=== PATIENT | female | born 1990 | race Caucasian/White ===

== ENCOUNTER → 2018-11-22 17:01 | Outpatient (CLI) | payer OTHER, SELFPAY ==
[2016-04-04 14:04] VITALS: BMI 29.0
[2018-11-22 21:18] LABS: Chlamydia Trachomatis by PCR Negative (Negative); Neisserai gonorrhoeae by PCR Negative (Negative); Probe Check PASS; Sample Adequacy Control PASS; Specimen Processing Control PASS
[2018-11-25 16:27] LABS: HPV Reflexed? NOT INDICATED
== END ==
PROVIDERS: Visit Provider Obstetrics & Gynecology
DX: Z12.4 Encounter for screening for malignant neoplasm of cervix (principal); Z11.3 Encounter for screening for infections with a predominantly sexual mode of transmission; Z32.01 Encounter for pregnancy test, result positive
CPT/HCPCS: 87491; 87591; 88175; G0145

== ENCOUNTER → 2018-12-06 16:29 | Outpatient (CLI) | payer OTHER, SELFPAY ==
[2016-04-04 14:04] VITALS: BMI 29.0
[2018-12-06 17:17] LABS: Absolute Lymphocyte Count 2.07 X10^3/ul (0.83-4.51); Absolute Neutrophil Count 8.1 X10^3/uL (2.0-7.7); Basophil# 0.02 X10^3/uL; Basophil% 0.2 % (0-1); Eosinophil# 0.09 X10^3/uL; Eosinophils% 0.8 % (0-5); Hematocrit 38.9 % (37-47); Hemoglobin 13.6 g/dl (12.0-15.0); Lymphocyte # 2.07 X10^3/ul (4.0); Lymphocyte % 18.6 % (19-41); Mean Corpuscular Hgb 31.6 pg (27.0-32.0); Mean Corpuscular Volume 90.5 fL (81-99); Mean Platelet Vol. 11.3 fl (6.2-12.0); Monocyte# 0.81 X10^3/uL; Monocyte% 7.3 % (0-10); Neutrophil # 8.11 X10^3/uL (2.7-7.7); Neutrophil % 72.8 % (47-70); Platelet Count 215 K/mm3 (150-450); White Blood Count 11.1 K/mm3 (4.4-11.0)
[2018-12-06 17:18] LABS: POSITIVE COUNT NO; POSITIVE DIFFERENTIAL NO; POSITIVE MORPHOLOGY NO
[2018-12-06 17:23] LABS: Color, Urine Yellow (Yellow); Glucose, Dipstick Normal (Normal); Ketone-Dipstick Negative (Negative); Leukocyte Esterase-Dipstick 500 /ul (Negative); Nitrite-Dipstick Negative (Negative); Occult Blood-Urine Negative /ul (Negative); Protein-Dipstick Negative (Negative); Urine Bilirubin Dipstick Negative (Negative); Urine Clarity Clear (Clear); Urine Urobilinogen Normal (Normal)
[2018-12-06 17:38] LABS: COTININE Drug Screen Negative (<200 ng/mL)
[2018-12-06 17:42] LABS: Amphetamine Urine VISTA NEGATIVE (<1000 ng/mL); Barbiturate Urine VISTA NEGATIVE (< 200 ng/mL); Benzodiazepine Urine VISTA NEGATIVE (< 200 ng/mL); Cocaine Urine VISTA NEGATIVE (< 300 ng/mL); Ecstacy Urine VISTA NEGATIVE (< 500 ng/mL); Methadone Urine VISTA NEGATIVE (< 300 ng/mL); PCP Urine VISTA NEGATIVE (< 25 ng/mL); THC Urine VISTA NEGATIVE (< 50 ng/mL); Vista UDS pH Range 7
[2018-12-06 18:27] LABS: HIV - WCH Non-Reactive (Nonreactive); Rubella IgG 83.3 IU/mL; Vitamin D,25 Hydroxy 19.4 ng/mL (29.95-100.01)
[2018-12-08 15:46] LABS: Toxoplasma Gondii IgM 8.8 AU/mL (0.0-7.9)
[2018-12-08 16:02] LABS: HEPATITIS B SURFACE AG Negative (Negative); Hep C Antibodies <0.1 s/co ratio (0.0-0.9); Toxoplasma Gondii IgG < 3.0 IU/mL (0.0-7.1)
[2018-12-09 04:56] LABS: Prenatal RPR NONREACTIVE (NONREACTIVE)
== END ==
PROVIDERS: Visit Provider Obstetrics & Gynecology
DX: Z34.81 Encounter for supervision of other normal pregnancy, first trimester (principal)
CPT/HCPCS: 36415; 80307; 81002; 82306; 84443; 85025; 86703; 86762; 86777; 86778; 86803; 87340

== ENCOUNTER → 2019-01-03 16:56 | Outpatient (CLI) | payer OTHER, SELFPAY ==
[2016-04-04 14:04] VITALS: BMI 29.0
[2019-01-05 15:40] LABS: Toxoplasma Gondii IgG < 3.0 IU/mL (0.0-7.1); Toxoplasma Gondii IgM 7.6 AU/mL (0.0-7.9)
== END ==
PROVIDERS: Visit Provider Obstetrics & Gynecology
DX: Z34.82 Encounter for supervision of other normal pregnancy, second trimester (principal)
CPT/HCPCS: 36415; 86777; 86778

== ENCOUNTER → 2019-01-31 16:19 | Outpatient (CLI) | payer OTHER, SELFPAY ==
[2016-04-04 14:04] VITALS: BMI 29.0
[2019-02-03 03:06] LABS: AFP MoM Value 0.76 (.); AFP Value-EIA 25.2 ng/mL (.); Comment Report (.); DIA MoM Value 0.73 (.); DIA Value-EIA 125.88 pg/mL (.); DSR (By Age) 765 (.); DSR (Second Trimester) 10000 (.); Gestat. Age Based On As provided (.); Gestational Age 16.3 WEEKS (.); Insulin Dep Diabetes No (.); Maternal Age At EDD 29.2 yr (.); hCG MoM 0.49 (.); hCG Value 19458 mIU/mL (.)
[2019-02-03 12:13] LABS: Toxoplasma Gondii IgG < 3.0 IU/mL (0.0-7.1)
[2019-02-03 12:29] LABS: Toxoplasma Gondii IgM 9.7 AU/mL (0.0-7.9)
== END ==
LOC: LABSPEC 16:20 → WOBLAB 16:26
PROVIDERS: Visit Provider Obstetrics & Gynecology
DX: Z34.82 Encounter for supervision of other normal pregnancy, second trimester (principal)
CPT/HCPCS: 36415; 82105; 82677; 84702; 86777; 86778

== ENCOUNTER → 2019-02-28 16:51 | Outpatient (CLI) | payer OTHER, SELFPAY | PROVIDERS: Visit Provider Obstetrics & Gynecology | DX: Z34.82 Encounter for supervision of other normal pregnancy, second trimester (principal) | CPT/HCPCS: 36415 ==

== ENCOUNTER → 2019-04-24 08:46 | Outpatient (CLI) | payer OTHER, SELFPAY ==
[2019-04-24 10:42] LABS: Hematocrit 34.8 % (37-47); Hemoglobin 11.7 g/dL (12.0-15.0); Mean Corp Hgb Conc 33.6 g/dL (32-36); Mean Corpuscular Hgb 32.5 pg (27.0-32.0); Mean Corpuscular Volume 96.7 fL (81-99); Mean Platelet Vol. 10.8 fl (6.2-12.0); Platelet Count 186 K/mm3 (150-450); RBC Distribution Width CV 12.6 % (11.6-14.6); RBC Distribution Width SD 44.2 fl (35.1-43.9); White Blood Count 11.1 K/mm3 (4.4-11.0)
[2019-04-24 10:47] LABS: Glucose Challenge Gest 1H 50g 82 mg/dL (70-140)
[2019-04-24 10:59] LABS: Vitamin D,25 Hydroxy 22.4 ng/mL (29.95-100.01)
== END ==
PROVIDERS: Visit Provider Obstetrics & Gynecology
DX: Z34.83 Encounter for supervision of other normal pregnancy, third trimester (principal)
CPT/HCPCS: 36415; 82306; 82950; 85027

== ENCOUNTER → 2019-06-20 18:04 | Outpatient (CLI) | payer OTHER, SELFPAY | PROVIDERS: Referring Provider Advanced Practice Midwife; Visit Provider Advanced Practice Midwife | DX: Z36.85 Encounter for antenatal screening for Streptococcus B (principal) | CPT/HCPCS: 87081 ==

== ENCOUNTER 2019-07-14 15:30 | Inpatient (IN) | payer OTHER, SELFPAY ==
[2019-07-14 16:08] VITALS: BMI 32.6
--- NOTE | 2019-07-14 16:15 | HP.PCM_ITS ---
History and Physical Date of Admission: 07/14/19 [facility] ANTEPARTUM RECORD - HISTORY AND PHYSICAL (07/14/2019) Name: BHAVANA JEFFERY OB Physician: ZACHARY [place]'s Physician: Dr Brumfield ...................................................................... : 1990 Age: 29 Address: [address] [place] [address] Phone: H) [phone] (O) [phone] Insurance Carrier: [employer] [id number] Emergency Contact: LUIS ENRIQUE LATIA [phone] ...................................................................... Final TERRENCE: 07/16/19 By Ultrasound: 8 weeks 2 days Bhavana is a 29yo at 39w5d gestation by L=8w2d US who presents for early labor; pt reports she began jimbo this morning about 1100, approx every 10 minutes; over the course of the day they became longer, stronger and closer together until about 1400 she was jimbo regularly every 5-7 minutes. course has been normal; she is GBS negative, and O positive. She is planning an epidural to manage her labor. PARITY: (G-Total Pregnancies P-Fullterm,Premature,Induced AB,Spont AB, Ectopics, Multiple,Living) TERRENCE CONFIRMATION: By LMP: 10/09/18 Initial Exam: 07/16/19 By First Ultrasound Exam: 07/13/19 Final TERRENCE: 07/16/19 BLOOD TYPE: AFP: 1 HR PG: GBS: Original Ordering Provider: PRADIP SALEH Culture Group B Beta Streptococcus is not isolated. Rublla titer (>10 immune)-- Hepatatis B graeme AG-- CULTURES:-- OB PROBLEM LIST: Family history of heart defects. Declines CF. REQUESTS AFP.... MSAFP WNL. +Toxoplasmosis, Toxo IgG 3.0 (low) Igm 8.8 high PCR for Toxoplamosis NEGATIVE EB Z: Pt. OK w/PRADIP or MD for PNC or delivery; ALLERGIES: No Known Allergies MEDICATIONS: DHA 200 mg capsule One capsule by mouth daily Vitamin D3 2,000 unit capsule Two pills by mouth once a day SOCIAL HISTORY: Smoking - Never Alcohol Use - socially not while Diet - caffeine < 2 drinks per day, Low dairy and rest balanced. 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 Spouse-Sig Other Phone No - [phone] (c) Children Name(s) - Charles 2015 (EB) PRIOR DELIVERY HISTORY DEL DATE GEST LAB WT LB WT OZ TYPE ANES LABOR TX Apr 14 38 6 8 7 Vag Epidural No ANTEPARTUM FLOW CHART VISIT GE RTC FU F F IL U U DATE WK MD WKS HT PN HR M SS BP ED WT IL GL D EF ST __ ____ ___ __ __ ___ __ __ __ ___ __ __ __ ___ __ 12 Jun CH 1 39 V + + 120/78 0 185 tr - 05 Jun KW 1 38 + + 150/72 0 181 tr - May 37 KW 1 36 V + + 124/68 0 179 tr - 1 -May KW 1 35 + + 122/74 sl 179 tr - 07 May ELB 2 34 - + + 130/68 0 173 tr - Apr ELB 2 30 - + + 140/74 0 173 - - May 29 SHM 2 30 ? + + 112/78 0 172 tr - Apr 26 SHM 4 28 + 126/66 0 170 - - 30 Mar 22 ELB 4 25 - + + 124/68 0 165 - - 02 Mar 18 ELB 4 - V U+ + 124/70 0 160 tr - 04 Feb 12 DS 4 16 ? + O 118/70 0 153 - - January 08 DS 4 12 ? U+ O 124/60 0 148 - - Dec 05 DS 4 ? U+ O 136/74 0 147 - - ANTEPARTUM NOTE(S): Jul 11 2019: feeling well. Cxs on and off. Jul 04 2019: feeling well. Jun 28 2019: intermittent contractions, wants cervix checked Jun 20 2019: GBS today, LARC declined Jun 05 2019: Reviewed FM, PTL May 22 2019: feeling well. Pain in tailbone and vagina May 08 2019: feeling well. Apr 24 2019: doing well, glucola today Mar 28 2019: Feb 28 2019: see note Jan 31 2019: pt desires AFP January 03 2019: see note Dec 06 2019: see note COMPREHENSIVE ANTEPARTUM NOTE(S): Jul 11 2019: (m,f*) Reports +FM. FHR 148. SVE declined today. Discussed membrane stripping and will decide whether wants SVE at next visit. Denies ROM, regular UC or bleeding. Reviewed when to call or come in. Educated on natural induction with studied methods ex. RRLP, EPO, walking, intercourse and nipple stimulation. Will return in 1 week for PNV if labor has not started with KW. -CH Jul 04 2019: Feeling well; reports active FM, but states not as much as she is accustomed to; ; denies UCs, VB, LOF; initial BP elevated, denies WOOD, epigastric pain, nausea or visual changes; DTRs 2+ bilateral LE, no clonus; repeat BP 124/78; discussed changes in FM as fetus grows and less space in uterus, FM counts, warning signs, s/s Labor, when to call/come in; RTO 1 week for PNV - KV/W Jun 28 2019: Feeling well; reports active FM; denies UCs, VB, LOF; VE per patient request 3, soft,midline; Pt. OK w/CNM or MD for PNC or delivery; discussed warning signs, s/s Labor, when to call/come in; RTO 1 week for PNV - KV Jun 27 2019: H taken to OB. tkg Jun 23 2019: GBS negative. EB Jun 20 2019: Bhavana is here for visit. She is uncomfortable. GBS today. LARC declined. Reviewed FM, SROM, and labor. Note given ok to have massage. LMT Jun 20 2019: Feeling well; reports active FM; denies UCs, VB, LOF; pt declines VE at this timer; GBS done today; discussed warning signs, s/s Labor, when to call/come in; RTO 1 week for PNV - KVW May 22 2019: Repeat BP 120/64. May 08 2019: Reviewed 28w lab work. PTL, ROM, FM precautions. Apr 24 2019: Feeling well; reports active FM; denies, UCs, VB, LOF; glucola and bloodwork done today; planning NFP for contraception; discussed warning signs, s/s PTL; RTO 2 weeks Mar 28 2019: Bhavana reporting some L sciatic pain. Offered referral to PT; she will consider. Can go to a chiropractor, which may offer some relief. Glucose bottle and instructions given to be done next visit. kbjr Feb 28 2019: Manfred has some cramping and pulling sensations. SHe is active at work. Advised some of this likely normal, round ligament pain reviewed. She asks about weight and we talked about increasing her po fluid intake and decreasing empty calories. Eating a lot of ice cream. Try to cut that back. Concerned about abdomen and discussed tear in rectus abdominus muscle, ok to watch as long as no pain. Concerned about heart issues as their son has irregular heart rate. Comp u/s looks good today. LMT Jan 31 2019: Doing better. MSAFP screening done today. Repeat toxo igg and igm today. Anatomical US next visit. Jan 04 2019: Nausea continues but not as often. No bleeding. labs reviewed and toxo IgM still elevated but IgG normal. This occured last and likely rpresents persistent IgM status vs reinfection. Toxoplasmosis IgM and IgG redrawn today. Jan 03 2019: Toxoplasmosis IgG, IgM drawn today. Still having days of nausea. Dec 06 2018: Bhavana is here for NOB nurse visit with TERRENCE 07-16-19 planning a vag del at [facility] probably with epidural using Dr Brumfield for post disch ped care and to breastfeed. Bhavana is a G 2 P 1 with 2 1/2 year old son. 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 Her ,Luis Enrique works as truck safety inspector for [employer]. They are pleased about the pg. Bhavana has been dry heaving every day but declines any med for it. Her weight is stable today. Advised calling for script prn. She is agreeable. States compared to issues with gallstones with her first pg this seems minimal to her. Bhavana has NKA to drugs, food, latex or the environment. Her diet is fairly balanced except very low on calcium. She eats cheese and ice cream. Importance of protein in diet discussed. She has cut way down on coffee - from multiple cups per day to one. She drinks a couple glasses of water daily. Advised to increase that to a couple liters. She drinks alcohol socially but not during pg, She is a lifetime non smoker and denies past or present street drug use. She is very active with her job. Genetics Screening form completed noting no family issues. She declines CF test but requests AFP. Warning signs in pg reviewed as well as how to reach office after hours, otc meds ok to take, wearing seatbelt very low on her abdomen and lifting restriction of about 25#. At work Bhavana does have to lift as much as 50#. Reminded to avoid lifting this much if possible and to use good body mechanics if she has to. She is agreeable. She has a copy of What to Expect. US done today and routine labs drawn with toxoplasmosis titer added due to her job and Vit D added d/t poor calcium intake. Sibling Class at [facility] suggested. Enc to call with any concerns. Visit took approx 50 min. Lon FOSTER NEW Dec 06 2019: Doing well. No compliants except some nausea. US c/w dating today. No bleeding. NOB intake visit and labs done today. Will test for toxoplasmosis immunity today. Pap normal last visit. Nov 22 2019: Bhavana is a 28 yr old Gr2 P1 here w/, Luis Enrique, for Missed Menses. By LMP 10/09/18, she would be 6 wks 2 days, TERRENCE 07/16/19. Reporting miniimal evening nausea--reviewed dietary choices, food combinations, which may help. No spotting, occas. cramping, which she thinks may be due to need for increasing water consumption. Reviewed importance of hydration with at least 12 large glasses per day. Taking a daily PNV> Non-smoker. Hx Cholecystectomy. Pap is due. information given and reviewed otc meds ok to take. NO NSAIDS> kbm REVIEW OF SYSTEMS: GENERAL - Denies fever, or chills SKIN - Denies rash, new skin lesions, or change in moles EYES - Denies blurred vision, or change in visual acuity EARS - Denies ear pain, or difficulty hearing NOSE - Denies nasal congestion, discharge, or bleeding MOUTH - Denies sore throat, or difficulty swallowing NECK - Denies pain or swelling RESPIRATORY - Denies shortness of breath, cough, wheezing CARDIOVASCULAR - Denies palpitations, chest pain, orthopnea, PND, peripheral edema, syncope or claudication GASTROINTESTINAL - Denies nausea, vomiting, diarrhea, constipation, Denies abdominal pain, melena and or bright red blood GENITOURINARY - Denies dysuria, frequency of urination, urgency, or hesitancy MUSCULOSKELETAL - Denies joint or muscle pain, or back pain NEUROLOGICAL - Denies localized numbness, weakness, or tingling PSYCHIATRIC - Denies depression, anxiety, substance abuse or suicide attempts ENDOCRINE - Denies heat or cold intolerance, weight loss or gain, increasing thirst HEMATO-IMMUNOLOGIC - Denies easy bruising, bleeding, oral ulcerations or recurrent infections GENETICS SCREENING: Age 35+ years: No Thalassemia: No Neural Tube Defect: No Down Syndrome: No ERICA-SACHS: No Sickle Cell Disease: No Hemophilia: No Musc. Dystrophy: No Cystic Fibrosis: No-declines screening [place] Chorea: No Mental Retardation: No Fragile X: No Other genetic: No Other defects: No SABs/still births: No Drugs since LMP: No INFECTION HISTORY: High risk AIDS: No High risk Hepatitis: No Exposed to TB: No Exposed to Herpes: No Rash/viral illness since LMP: No History of STD: No MENSTRUAL HISTORY: *Menses Amount/Duration: 4-5 daysMenses Regularity: RegularMenarche (Age Onset): 12* PAST SUMMARY: PARITY: 1. Total Pregnancies............ 2 2. Full Term Pregnancies........ 1 3. Premature.................... 0 4. Abortions - Induced.......... 0 5. Abortions - Spontaneous...... 0 6. Ectopics..................... 0 7. Multiple Births.............. 0 8. Living Children.............. 1 PAST #1: Date of :.................. 04/04/16 Gestation Weeks:................ 38 Length of labor(hours):......... 6 Sex:............................ M Weight-lbs:............... 8 Weight-oz:................ 7 Type of Delivery:............... Vag Type of Anesthesia:............. Epidural Place of Delivery:.............. [place] Treatment of Labor?:.... No Comment: [facility] Labs for : BHAVANA JEFFERY since 10/19/2018 ORDER DATEIN DESCRIPTION VALUE UNITS RANGE A+ COMMENT CULTURE, GROUP B STREPTOCOCCUS 06/20/19 NOTE Original Ordering Provider: PRADIP SALEH Culture Group B Beta Streptococcus is not isolated. Reviewed by VIRGINIE Reviewed by SANGEETA VITAMIN D,25 HYDROXY 04/24/19 NOTE Original Ordering Provider: Shonda Taveras VITAMIN D 25-OH 22.4 ng/mL 29.95-100.01 L Vitamin D 25(OH) Status Range Deficiency <20 ng/mL (50nmol/L) Insufficiency 20 - 30 ng/mL (50 - 75 nmol/L) Sufficiency 30 - 100 ng/mL (75 - 250 nmol/L) Toxicity >100 ng/mL (>250 nmol/L) Reviewed by SHONDA GLUCOSE CHALLENGE GEST 1H 50G 04/24/19 NOTE Original Ordering Provider: Shonda Taveras GLU GEST 50G 1H 82 mg/dL 70-140 Reviewed by SHONDA CBC-COMPLETE BLOOD CNT NO DIFF 04/24/19 NOTE Original Ordering Provider: Shonda Taveras WBC 11.1 K/mm3 4.4-11.0 H RBC 3.60 M/mm3 4.2-5.4 L HGB 11.7 g/dL 12.0-15.0 L HCT 34.8 % 37-47 L MCV 96.7 fL 81-99 MCH 32.5 pg 27.0-32.0 H MCHC 33.6 g/dL 32-36 RDW CV 12.6 % 11.6-14.6 RDW SD 44.2 fl 35.1-43.9 H w PLT 186 K/mm3 150-450 MPV 10.8 fl 6.2-12.0 Reviewed by SHONDA MISCELLANEOUS LAB PROCEDURE 02/28/19 NOTE Original Ordering Provider: Sangeeta Deluac [facility] TEST TEST RESULT LIMITS Toxoplasma gondii PCR Negative Negative This test was developed and its performance characteristics determined by [facility]. It has not been cleared or approved by the U.S. Food and Drug Administration. The FDA has determined that such clearance or approval is not necessary. This test is used for clinical purposes. It should not be regarded as investigational or research. TESTING PERFORMED AT [facility]. ORIGINAL REPORT ON FILE IN LAB CONTAINS ADDITIONAL TEST SITE INFORMATION. Reviewed by SANGEETA TOXOPLASMA GONDII IGM 01/31/19 NOTE Original Ordering Provider: Edilma Art TOXOP IGM 9.7 AU/mL 0.0-7.9 H A second sample should be collected and tested no less than 2-4 weeks. Negative <8.0 Equivocal 8.0 - 9.9 Positive >9.9 Reviewed by EDILMA TOXOPLASMA GONDII IGG 01/31/19 NOTE Original Ordering Provider: Edilma Art TOXOPIGG < 3.0 IU/mL 0.0-7.1 Negative <7.2 Equivocal 7.2 - 8.7 Positive >8.7 Performed at: - [facility] [address] [place], [place] [id number] Food And Beverage Assistant: Hao Trejo MD, Phone: [phone] Performed at: - [facility] [address] [id number] Food And Beverage Assistant: Wesley Portillo PhD, Phone: [phone] Reviewed by EDILMA ZALDIVAR TETRA QUAD SCREEN 01/31/19 NOTE Original Ordering Provider: Edilma Art TEST RESULTS: *Screen Negative* . GESTATIONAL AGE 16.3 WEEKS . GEST AGE FROM As provided . [facility] [age] @TERRENCE [age] . RACE . WEIGHT 153 lbs . INS DEP DIABETE No . MULT GESTATION No . AFP VALUE-EIA 25.2 ng/mL . AFP MOM VALUE 0.76 . HCG VALUE 88182 mIU/mL . HCG MOM 0.49 . UE3 VALUE 1.03 ng/mL . UE3 MOM 1.16 . LATOYA VALUE-EIA 125.88 pg/mL . LATOYA MOM VALUE 0.73 . OSBR RISK 03803 . DSR 2ND TRIMEST 24155 . DSR (BY AGE) 765 . T18 RISK Not increased . T18 (BY AGE) 1:2981 . INTERPRETATION . Interpretation: Screen Negative This result is screen negative for OSB, Down Syndrome and Trisomy 18. The AFP MoM and patient specific risks calculated are based on the gestational age and the clinical information provided. This test can identify up to 80% of open neural tube defects. Closed neural tube defects and some open defects may not be detected by this test. The combination of maternal age, AFP, hCG, uE3, and LATOYA identifies 75-80% of Down Syndrome. The combination of maternal age, AFP, hCG and uE3 identifies 60% of Trisomy 18 pregnancies. The [place] [employer] recommends amniocentesis be offered to women age 35 and older. Recalculations are not recommended when gestational dating by LMP and ultrasound are within 10 days. Reviewed by SANGEETA TOXOPLASMA GONDII IGM 01/03/19 NOTE Original Ordering Provider: Edilma Art TOXOP IGM 7.6 AU/mL 0.0-7.9 Negative <8.0 Equivocal 8.0 - 9.9 Positive >9.9 TOX. GONDII COM . It is presumed the patient has not been infected with and is not undergoing an acute infection with Toxoplasma. If symptoms persist, submit a new specimen after three weeks. Performed at: [address] [id number] Food And Beverage Assistant: Wesley Portillo PhD, Phone: [phone] Reviewed by VIRGINIE TOXOPLASMA GONDII IGG 01/03/19 NOTE Original Ordering Provider: Edilma Art TOXOPIGG < 3.0 IU/mL 0.0-7.1 Negative <7.2 Equivocal 7.2 - 8.7 Positive >8.7 Performed at: [address] [id number] Food And Beverage Assistant: Wesley Portillo PhD, Phone: [phone] Reviewed by VIRGINIE Reviewed by EDILMA RPR 12/06/18 NOTE Original Ordering Provider: Edilma Art RPR NONREACTIVE NONREACTIVE Reviewed by EDILMA TOXOPLASMA GONDII IGG 12/06/18 NOTE Original Ordering Provider: Edilma Art TOXOPIGG < 3.0 IU/mL 0.0-7.1 Negative <7.2 Equivocal 7.2 - 8.7 Positive >8.7 Reviewed by EDILMA HEPATITIS C ANTIBODIES 12/06/18 NOTE Original Ordering Provider: Edilma Art HEP C AB <0.1 s/co ratio 0.0-0.9 Negative: < 0.8 Indeterminate: 0.8 - 0.9 Positive: > 0.9 The CDC recommends that a positive HCV antibody result be followed up with a HCV Nucleic Acid Amplification test (205640). Reviewed by EDILMA HEPATITIS B SURFACE AG 12/06/18 NOTE Original Ordering Provider: Edilma Art HB SURF AG Negative Negative Performed at: [address] [id number] Food And Beverage Assistant: Wesley Portillo PhD, Phone: [phone] Reviewed by EDILMA TOXOPLASMA GONDII IGM 12/06/18 NOTE Original Ordering Provider: Edilma Art TOXOP IGM 8.8 AU/mL 0.0-7.9 H A second sample should be collected and tested no less than 2-4 weeks. Negative <8.0 Equivocal 8.0 - 9.9 Positive >9.9 Reviewed by EDILMA HIV - [facility] 12/06/18 NOTE Original Ordering Provider: Edilma Art HIV - [facility] Non-Reactive Nonreactive Reviewed by EDILMA RUBELLA IGG 12/06/18 NOTE Original Ordering Provider: Edilma Art RUBELLA IGG 83.3 IU/mL Antibody results Interpretation of Immune Status < 5 IU/ml Presumed Non-immune 5 - < 10 IU/ml Equivocal > or = 10 IU/ml Presumed Immune Reviewed by EDILMA VITAMIN D,25 HYDROXY 12/06/18 NOTE Original Ordering Provider: Edilma Art VITAMIN D 25-OH 19.4 ng/mL 29.95-100.01 L Vitamin D 25(OH) Status Range Deficiency <20 ng/mL (50nmol/L) Insufficiency 20 - 30 ng/mL (50 - 75 nmol/L) Sufficiency 30 - 100 ng/mL (75 - 250 nmol/L) Toxicity >100 ng/mL (>250 nmol/L) Reviewed by EDILMA T AND S-NO CHARGE W/PNP 12/06/18 Reason for Type AND Screen/Red Cells: Surgery? N [facility]~[address] [facility] [place], [address]~ BLOOD TYPE GEL O POSITIVE N w AB SCREEN GEL NEGATIVE N Reviewed by EDILMA THYROID STIM HORMONE (TSH) 12/06/18 NOTE Original Ordering Provider: Edilma Art TSH 3.20 uIU/mL 0.358-3.74 Reviewed by EDILMA NICOTINE URINE DRUG SCREEN 12/06/18 NOTE Original Ordering Provider: Edilma Art TO BE CONFIRMED CONFIRMATORY TESTING FOR ALL POSITIVE URINE DRUG SCREEN RESULTS WILL ONLY BE SENT OUT UPON PHYSICIAN ORDER. The results of Urine Drug Screen methods provide only preliminary analytical test results. A more specific alternate chemical method must be used in order to obtain a confirmed analytical result. Gas chromatography/mass spectrometery (GC/MS) is the preferred confirmatory method. Clinical consideration and professional judgement should be applied to any drug of abuse test result, particularly when preliminary positive results are used. COT DRG SCREEN Negative <200 ng/mL Cotinine is the first-stage metabolite of Nicotine. Reviewed by EDILMA URINE DRUG SCREEN (VISTA) 12/06/18 NOTE Original Ordering Provider: Edilma Art TO BE CONFIRMED CONFIRMATORY TESTING FOR ALL POSITIVE URINE DRUG SCREEN RESULTS WILL ONLY BE SENT OUT UPON PHYSICIAN ORDER. VISTA Urine Drug Screen methods provide only preliminary analytical test results. A more specific alternate chemical method must be used in order to obtain a confirmed analytical result. Gas chromatography/mass spectrometery (GC/MS) is the preferred confirmatory method. Clinical consideration and professional judgement should be applied to any drug of abuse test result, particularly when preliminary positive results are used. URINE TCA TESTING MUST BE ORDERED SEPARATELY. USE TEST MNEMONIC: [facility] UDS PH 7 AMPHETAMINES NEGATIVE <1000 ng/mL BARBITIURATES NEGATIVE < 200 ng/mL BENZODIAZIPINE NEGATIVE < 200 ng/mL COCAINE NEGATIVE < 300 ng/mL ECSTACY NEGATIVE < 500 ng/mL METHADONE NEGATIVE < 300 ng/mL OPIATES NEGATIVE < 300 ng/mL PCP NEGATIVE < 25 ng/mL THC NEGATIVE < 50 ng/mL Reviewed by EDILMA URINALYSIS, ROUTINE (DIPSTICK) 12/06/18 NOTE Original Ordering Provider: Edilma Atr COLOR Yellow Yellow CLARITY Clear Clear GLUCOSE, UR Normal mg/dl Normal BILIRUBIN URINE Negative mg/dL Negative KETONE UR Negative mg/dl Negative SP.GR. DIPSTX 1.010 1.002-1.030 PH UR 7.0 5.0 - 8.0 PROT DIPSTX Negative mg/dl Negative UROBILI Normal mg/dl Normal NITRITE UR Negative Negative OCCULT BLOOD-UR Negative /ul Negative LEUK ESTERASE 500 /ul Negative H Reviewed by EDILMA CBC W/DIFF, AUTOMATED 12/06/18 NOTE Original Ordering Provider: Edilma Art WBC 11.1 K/mm3 4.4-11.0 H RBC 4.30 M/mm3 4.2-5.4 HGB 13.6 g/dl 12.0-15.0 HCT 38.9 % 37-47 MCV 90.5 fL 81-99 MCH 31.6 pg 27.0-32.0 MCHC 35.0 g/gl 32-36 RDW CV 12.0 % 11.6-14.6 RDW SD 39.0 fl 35.1-43.9 PLT 215 K/mm3 150-450 MPV 11.3 fl 6.2-12.0 NEUT% 72.8 % 47-70 H LY% 18.6 % 19-41 L MONO% 7.3 % 0-10 EO% 0.8 % 0-5 BASO% 0.2 % 0-1 IM GRAN % 0.300 % 0.0-0.9 IG% - Immature Granulocytes (promyelocytes, myelocytes and metamyelocytes) > 1% indicates that a LEFT SHIFT is Present. ABSOLUTE NEUT 8.1 X10 3/uL 2.0-7.7 Hr ABSOLUTE LYMPH 2.07 X10 3/ul 0.83-4.51 Reviewed by EDILMA PAP I-G W/RFX HRHPV 11/22/18 NOTE Original Ordering Provider: Edilma Art DIAGN . NEGATIVE FOR INTRAEPITHELIAL LESION OR MALIGNANCY. ADEQ . Satisfactory for evaluation. Endocervical and/or squamous metaplastic cells (endocervical component) are present. PERFORM . Erica Sal[facility] [employer] TEST METHOD . This liquid based ThinPrep(R) pap test was screened with the use of an image guided system. COMM . . PAPSMR . The Pap smear is a screening test designed to aid in the detection of premalignant and malignant conditions of the uterine cervix. It is not a diagnostic procedure and should not be used as the sole means of detecting cervical cancer. Both false-positive and false-negative reports do occur. HPV RFLX . The HPV DNA reflex criteria were not met with this specimen result therefore, no HPV testing was performed. Performed at: [address] [id number] Food And Beverage Assistant: Sugey Delgado MD, Phone: [phone] Reviewed by SANGEETA VERDUZCO/MYLA [facility] BY PCR 11/22/18 NOTE Original Ordering Provider: Edilma Art [facility] PCR Negative Negative NG BY PCR Negative Negative Reviewed by EDILMA PROVIDER SIGNATURE ( REQUIRED) PHYSICAL EXAMINATION General Appearance: 29 yo female in no acute distress Vital Signs: AF, VSS Heart: RRR without rubs or gallops Lungs: CTA x 2 Breasts: deferred Abdomen: gravid Pelvis: Cervix: 4/70/-2 at 1545 per RN, BOW intact Presentation: cephalic, ROT by Aamir's and bedside ultrasound Fetus: Size: AGA Movement: present Heart: 130 baseline, moderate variability, with accels, no decels Vertex and ROT per Leopolds and bedside US UCs:Q 2-3 minutes Impression: 29 yo at 39w5d gestation by L=8w2d US Early labor Group B negative O positive Cat 1 FHTs Plan: Admit to inpatient Continuous EFM Epidural on request Expectant management Anticipate vaginal
[2019-07-14] MEDS: Lactated Ringers 1,000 ML 50 ML IV (16:25)
--- NOTE | 2019-07-14 16:26 | NURSING ---
FOB states grandparents and his mother were [place]
[2019-07-14 16:39] LABS: Absolute Lymphocyte Count 1.49 X10^3/uL (0.83-4.51); Absolute Neutrophil Count 9.9 X10^3/uL (2.0-7.7); Basophil# 0.07 X10^3/uL; Basophil% 0.6 % (0-1); Eosinophil# 0.07 X10^3/uL; Eosinophils% 0.6 % (0-5); Hematocrit 37.4 % (37-47); Hemoglobin 12.6 g/dL (12.0-15.0); Lymphocyte # 1.49 X10^3/ul (4.0); Lymphocyte % 11.8 % (19-41); Mean Corp Hgb Conc 33.7 g/dL (32-36); Mean Corpuscular Hgb 31.7 pg (27.0-32.0); Mean Platelet Vol. 10.6 fl (6.2-12.0); Monocyte# 0.94 X10^3/uL; Monocyte% 7.4 % (0-10); NRBC Flagged by Analyzer 0 % (0-5); Neutrophil # 9.91 X10^3/uL (2.7-7.7); Neutrophil % 78.5 % (47-70); Platelet Count 183 K/mm3 (150-450); RBC Distribution Width SD 44.5 fl (35.1-43.9); Red Blood Count 3.98 M/mm3 (4.2-5.4); White Blood Count 12.6 K/mm3 (4.4-11.0)
[2019-07-14] MEDS: Lactated Ringers 500 ML 999 ML IV (17:24)
[2019-07-14] MEDS: fentaNYL-bupivacaine (epidural) 100 ML BAG EPIDURAL ×2 (18:26→22:41)
--- NOTE | 2019-07-14 19:25 | PCM.PN.OB ---
Subjective: Comfortable with epidural. bedside and supportive Objective: AVSS FHTs: 130 baseline, moderate variability with accels, no decels UCs: Q 2-3 minutes Cervix: 6/90/-2, vertex ROT, BOW intact - Physical Exam Vitals/I&O's: Weight: 178 lb 9.191 oz Body Mass Index (BMI) 32.6 Intake and Output for Last 24 Hours 07/12/19 07/13/19 07/14/19 23:59 23:59 23:59 Intake Total 549.17 / 549.17 Balance 549.17 / 549.17 Laboratory Results 07/14/19 16:24: WBC 12.6 H, RBC 3.98 L, Hgb 12.6, Hct 37.4, MCV 94.0, MCH 31.7, MCHC 33.7, RDW Std Deviation 44.5 H, RDW Coeff of Joi 13.0, Plt Count 183, MPV 10.6, Immature Gran % (Auto) 1.100 H, Neut % (Auto) 78.5 H, Lymph % (Auto) 11.8 L, [place] % (Auto) 7.4, Eos % (Auto) 0.6, Baso % (Auto) 0.6, Absolute Neuts (auto) 9.9 H, Absolute Lymphs (auto) 1.49, Nucleated RBC % 0 07/14/19 16:24: Blood Type O POSITIVE, Antibody Screen NEGATIVE Current Medications Acetaminophen (Tylenol) 325 - 650 mg PO Q4H PRN PRN PRN Reason: Pain Score 1-3/10 Al Hydroxide/Mg Hydroxide (Mylanta Ii) 15 - 30 ml PO Q4H PRN PRN PRN Reason: INDIGESTION Citric Acid/Sodium Citrate (Bicitra) 30 ml PO X1 PRN PRN Reason: Section Ephedrine Sulfate () 10 mg IV Q10M PRN PRN Reason: hypotension Ephedrine Sulfate () 10 mg IM Q30M PRN PRN Reason: hypotension Fentanyl/Bupivacaine/Sodium Chlor () 0 ml EPIDURAL UD [facility]; Protocol Last Admin: 07/14/19 18:26 Dose: 100 ml Documented by: Lactated Ringer's () 500 mls @ 999 mls/hr IV .Q31M PRN PRN Reason: Epidural Last Infusion: 07/14/19 17:55 Dose: Infused Documented by: Lactated Ringer's () 500 mls @ 999 mls/hr IV .Q31M PRN PRN Reason: Corrective Measures Lactated Ringer's () 1,000 mls @ 50 mls/hr IV .Q20H [place] Last Infusion: 07/14/19 17:55 Dose: 200 mls/hr Documented by: Naloxone HCl 4 mg/ Dextrose 504 mls @ 0 mls/hr IV .Q0M PRN; Protocol PRN Reason: To maintain Resp. rate >10 Nalbuphine HCl (Nubain) 5 - 10 mg IV Q3H PRN PRN PRN Reason: Pain Score 4-10/10 Nalbuphine HCl (Nubain) 5 - 10 mg SC Q3H PRN PRN PRN Reason: Pain Score 4-10/10 Nalbuphine HCl (Nubain) 5 mg IV Q3H PRN PRN PRN Reason: ITCHING Naloxone HCl (Narcan) 0.02 mg IV Q1M PRN PRN Reason: RR <10 and pt unresponsive Ondansetron HCl (Zofran) 4 mg IV Q4H PRN PRN PRN Reason: NAUSEA Prochlorperazine Edisylate (Compazine Iv) 10 mg IV Q6H PRN PRN PRN Reason: NAUSEA Sodium Chloride () 10 - 40 ml IV X1 PRN PRN Reason: SALINE FLUSH Medical Necessity - Tobacco Use Smoking Status: Never smoker Assessment/Plan Impression: 29 yo at 39w5d gestation by L=8w2d Active labor Group B negative O positive Cat 1 FHTs Plan: Continuous EFM Frequent position changes, peanut ball, etc. Otherwise expectant management Anticipate vaginal
--- NOTE | 2019-07-14 22:22 | PN.OBGYN_ITS ---
Subjective: Feeling pressure with contractions; denies urge to push; bedside and supportive Objective: AVSS FHTs: 130 baseline, moderate variability, with accels, no decels UCs: Q 3-6 Cervix: 7-8/90/0, BOW intact per RN - Physical Exam Vitals/I&O's: Weight: 178 lb 9.191 oz Body Mass Index (BMI) 32.6 Intake and Output for Last 24 Hours 07/12/19 07/13/19 07/14/19 23:59 23:59 23:59 Intake Total 549.17 / 549.17 Balance 549.17 / 549.17 Laboratory Results 07/14/19 16:24: WBC 12.6 H, RBC 3.98 L, Hgb 12.6, Hct 37.4, MCV 94.0, MCH 31.7, MCHC 33.7, RDW Std Deviation 44.5 H, RDW Coeff of Joi 13.0, Plt Count 183, MPV 10.6, Immature Gran % (Auto) 1.100 H, Neut % (Auto) 78.5 H, Lymph % (Auto) 11.8 L, [place] % (Auto) 7.4, Eos % (Auto) 0.6, Baso % (Auto) 0.6, Absolute Neuts (auto) 9.9 H, Absolute Lymphs (auto) 1.49, Nucleated RBC % 0 07/14/19 16:24: Blood Type O POSITIVE, Antibody Screen NEGATIVE Current Medications Acetaminophen (Tylenol) 325 - 650 mg PO Q4H PRN PRN PRN Reason: Pain Score 1-3/10 Al Hydroxide/Mg Hydroxide (Mylanta Ii) 15 - 30 ml PO Q4H PRN PRN PRN Reason: INDIGESTION Citric Acid/Sodium Citrate (Bicitra) 30 ml PO X1 PRN PRN Reason: Section Ephedrine Sulfate () 10 mg IV Q10M PRN PRN Reason: hypotension Ephedrine Sulfate () 10 mg IM Q30M PRN PRN Reason: hypotension Fentanyl/Bupivacaine/Sodium Chlor () 0 ml EPIDURAL UD [facility]; Protocol Last Admin: 07/14/19 18:26 Dose: 100 ml Documented by: Lactated Ringer's () 500 mls @ 999 mls/hr IV .Q31M PRN PRN Reason: Epidural Last Infusion: 07/14/19 17:55 Dose: Infused Documented by: Lactated Ringer's () 500 mls @ 999 mls/hr IV .Q31M PRN PRN Reason: Corrective Measures Lactated Ringer's () 1,000 mls @ 50 mls/hr IV .Q20H [place] Last Infusion: 07/14/19 17:55 Dose: 200 mls/hr Documented by: Naloxone HCl 4 mg/ Dextrose 504 mls @ 0 mls/hr IV .Q0M PRN; Protocol PRN Reason: To maintain Resp. rate >10 Nalbuphine HCl (Nubain) 5 - 10 mg IV Q3H PRN PRN PRN Reason: Pain Score 4-10/10 Nalbuphine HCl (Nubain) 5 - 10 mg SC Q3H PRN PRN PRN Reason: Pain Score 4-10/10 Nalbuphine HCl (Nubain) 5 mg IV Q3H PRN PRN PRN Reason: ITCHING Naloxone HCl (Narcan) 0.02 mg IV Q1M PRN PRN Reason: RR <10 and pt unresponsive Ondansetron HCl (Zofran) 4 mg IV Q4H PRN PRN PRN Reason: NAUSEA Prochlorperazine Edisylate (Compazine Iv) 10 mg IV Q6H PRN PRN PRN Reason: NAUSEA Sodium Chloride () 10 - 40 ml IV X1 PRN PRN Reason: SALINE FLUSH Medical Necessity - Tobacco Use Smoking Status: Never smoker Assessment/Plan Impression: 29 yo at 39w5d gestation by L=8w2d US Active labor, progressing well Group B negative O positive Cat 1 FHTs Plan: Continuous EFM Frequent position changes, peanut ball, etc. Otherwise expectant management Anticipate vaginal
[2019-07-14] MEDS: Lactated Ringers 1,000 ML 200 ML IV (22:41)
[2019-07-15] MEDS: Oxytocin 30 units/NS 500 ml 30 UNITS/500 ML IV.SOLN 334 UNITS IV (00:45)
--- NOTE | 2019-07-15 01:29 | PCM.OPRPT ---
Vaginal Delivery Pt arrived yesterday after c/o contractions that had started in late morning and had become progressively stronger and closer together Amniotic Membrane Rupture Type: Spontaneous Rupture of Membrane time: 0024 Amniotic Fluid Description: Clear Final TERRENCE: 07/16/19 Final TERRENCE Source: US <20 weeks Gestational age: 39 Weeks and 6 Days Date of Procedure: 07/15/19 Pre-Operative Diagnosis: LABOR Post-Operative Diagnosis: Surgery/ Procedure Performed: Spontaneous Vaginal Delivery Type of Anesthesia: Epidural Description of Procedure: CTSP when she was 10/100/+2 shortly after SROM; pushed well and quickly delivered a vigorous female over a first degree perineal laceration, OA to NADEGE; shoulders followed easily with minimal maternal effort; infant placed on mother's abdomen, dried and stimulated; cord allowed to pulse x 3 minutes, then clamped x 2 by CNM and cut by FOB; placenta delivered spontaneously, Lili mechanism, intact, 3-vessel cord, marginal insertion; first degree perineal laceration repaired with 3-0 Vicryl, good hemostasis obtained; EBL 450 ml Lap sponge, Raytec and instrument counts correct x 2 with RN Presentation: Vertex, NADEGE Placental Delivery Description: Spontaneous Placenta Disposition: [facility] Cord Vessel Description: 3 Vessels Cord Entanglement: None Estimated Blood Loss: 450ml A gender: Female (1 minute): 9 (5 minute): 9 Episiotomy Description: None Laceration: Midline, 1st degree Medications given after delivery: IV Pitocin
--- NOTE | 2019-07-15 01:42 | DCINST_ITS ---
Discharge Diet: No Restrictions Discharge Activity: Return to Normal Activity, May Drive, May Shower, May Take a Tub Bath Return to work on:: 08/26/19 - 6 weeks May resume sexual activity in: 6 weeks Weight Bearing Status: Weight bearing as tolerated Lifting Restrictions: Nothing heavier than the baby for two weeks Additional Activity Instructions:: Limit cooking, cleaning shopping or long car rides for two weeks; try to get 12 hours sleep in 24 hours for the first two weeks - sleep when the baby sleeps Call your doctor if your incision/area has: Continuous Slow Oozing, Sudden Inc reased Bleeding, Increased Pain/ Swelling, Foul Smelling Discharge Call your doctor if you observe: Fever of 101 or Higher, Inability to urinate, Inability to have a bowel movement, Using more than one pad per hour, Shortness of breath, Dizziness Additional Instructions: If you experience any of the following, contact your healthcare provider. * Bleeding that soaks a pad every hour for 2 hours * Fever 100.4 or higher * Unrelieved incision or abdominal pain * Swelling, redness, discharge or bleeding from your vaginal repair site * Problems urinating (including inability to urinate or burning while urinating). * Visual changes * Severe headache * Flu-like symptoms * Pain or redness in one of both of your breasts * Pain, warmth, tenderness or swelling in your legs, especially the calf area * Frequent nausea and vomiting * Symptoms of depression or anxiety If you experience any of the following, call 911 or go to the nearest Emergency Room. * Chest pain * Problems breathing * Partial or complete paralysis of a body part, slurred speech, weakness or drooping of the face, or a sudden inability to walk or hold your balance Allergies/Adverse Reactions: Allergies No Known Allergies Allergy (Verified 04/02/16 05:50) Medications to take at Discharge Docusate Sodium 1 tab PO DAILY 02/24/16 Pantoprazole Sodium [Protonix] 40 mg PO DAILY 02/24/16 Vit No.124/Iron/Folic [ Vitamin Tablet] 1 each PO DAILY 0 02/24/16 Please Follow Up With: Atiya Mills CNM When: Six weeks for visit Test Results: Test results from this visit will be discussed in further detail at your follow- up appointment, if applicable. Proposed Discharge Date: 07/16/19
[2019-07-15 04:00] VITALS: BP 108/52; PULSE 91; RESP 16; TEMP 37.1
[2019-07-15 07:36] VITALS: BP 128/69; PULSE 84; RESP 16; TEMP 36.9; O2SAT 99
[2019-07-15] MEDS: Ibuprofen 600 MG Tablet PO ×3 (09:04→22:39)
[2019-07-15 11:45] VITALS: BP 142/78; PULSE 83; RESP 16; TEMP 36.6
[2019-07-15] MEDS: Acetaminophen 500 MG Tablet 1000 MG PO ×2 (11:51→19:59)
[2019-07-15 15:00] VITALS: BP 128/77; PULSE 77; RESP 16; TEMP 36.6
[2019-07-15 19:41] VITALS: BP 116/80; PULSE 66; RESP 18; TEMP 36.2; O2SAT 98
[2019-07-15 23:46] VITALS: BP 113/62; PULSE 71; RESP 16; TEMP 36.4
[2019-07-16 04:46] LABS: Hematocrit 33.1 % (37-47); Hemoglobin 11.1 g/dL (12.0-15.0); Mean Corp Hgb Conc 33.5 g/dL (32-36); Mean Corpuscular Hgb 31.8 pg (27.0-32.0); Mean Corpuscular Volume 94.8 fL (81-99); Mean Platelet Vol. 10.8 fl (6.2-12.0); Platelet Count 151 K/mm3 (150-450); RBC Distribution Width CV 13.1 % (11.6-14.6); RBC Distribution Width SD 44.6 fl (35.1-43.9); Red Blood Count 3.49 M/mm3 (4.2-5.4); White Blood Count 11.8 K/mm3 (4.4-11.0)
[2019-07-16] MEDS: Ibuprofen 600 MG Tablet PO ×2 (05:37→13:39)
[2019-07-16 05:39] VITALS: BP 111/62; PULSE 70; RESP 16; TEMP 36.5
[2019-07-16 07:30] VITALS: BP 128/84; PULSE 80; RESP 16; TEMP 36.4; O2SAT 98
[2019-07-16] MEDS: Acetaminophen 500 MG Tablet 1000 MG PO (09:53)
--- NOTE | 2019-07-16 10:50 | PN.OBGYN_ITS ---
Subjective: Pain well controlled, tolerating diet, passing flatus, well Objective: AVSS Breasts soft, nipples atraumatic Fundus firm, midline, u/1, lochia scant Perineal repair well approximated, without erythema, edema or drainage - Physical Exam Vitals/I&O's: Vital Signs Temp Pulse Resp BP Pulse Ox 97.6 F L 80 16 128/84 H 98 07/16/19 07:30 07/16/19 07:30 07/16/19 07:30 07/16/19 07:30 07/16/19 07:30 Oxygen Delivery Method Room Air Weight: 178 lb 9.191 oz Body Mass Index (BMI) 32.6 Intake and Output for Last 24 Hours 07/14/19 07/15/19 07/16/19 23:59 23:59 23:59 Intake Total 1500.00 / 1500.00 1153.33 / 1153.33 Output Total 650 / 650 Balance 850.00 / 850.00 1153.33 / 1153.33 General: Alert, Oriented x3, Cooperative, No apparent distress HEENT: PERRLA, EOMI Oral: Moist Mucosa Neck: Supple Lungs: Clear to auscultation, Normal air movement Cardiovascular: Regular rate, Regular Rhythm Abdomen: Bowel Sounds Present, Soft, Non Tender, Non-Distended, No Hepato- splenomegaly, Passing Flatus Extremities: No edema, Capillary Refill Less than 3 Seconds, No Calf Tenderness Skin: No rashes Musculoskeletal: No Tenderness to Palpation of Joints or Extremities Neurological: Cranial nerves II-XII grossly intact Psych/Mental Status: Normal Affect, Appropriate, Alert and oriented to time, place, person, mood and affect Laboratory Results 07/16/19 04:35: WBC 11.8 H, RBC 3.49 L, Hgb 11.1 L, Hct 33.1 L, MCV 94.8, MCH 31.8, MCHC 33.5, RDW Std Deviation 44.6 H, RDW Coeff of Joi 13.1, Plt Count 151, MPV 10.8 Current Medications Acetaminophen (Tylenol) 1,000 mg PO Q8H PRN PRN PRN Reason: Pain Score 1-3/10 Last Admin: 07/16/19 09:53 Dose: 1,000 mg Documented by: Bisacodyl (Dulcolax) 10 mg RECTAL UD PRN PRN Reason: If no BM Dibucaine (Dibucaine) 1 applic TOPICAL TID PRN PRN; Protocol PRN Reason: Discomfort Hydrocortisone (Hytone) 1 applic TOPICAL TID PRN PRN; Protocol PRN Reason: Discomfort Ibuprofen (Motrin) 600 mg PO Q6H PRN PRN PRN Reason: Pain Score 1-3/10 Last Admin: 07/16/19 05:37 Dose: 600 mg Documented by: Methylergonovine Maleate (Methergine) 0.2 mg IM X1 PRN PRN Reason: Excess bleeding/uterine atony Senna/Docusate Sodium (Senokot-S, Na-Colace) 1 - 2 tablet PO DAILY PRN PRN PRN Reason: Constipation Simethicone (Mylicon) 80 mg PO PCHS PRN PRN Reason: Indigestion/Stomach pain Medical Necessity - Tobacco Use Smoking Status: Never smoker Assessment/Plan Assessment: 29 yo G2 now P2002 delivered at 39w6d gestation by L=8w2d US PP Day #1,normal involution, normal course Plan: Discharge teaching completed Discharge home today RTO 6 weeks for check up or PRN
[2019-07-16 13:32] VITALS: BP 119/67; PULSE 85; RESP 16; TEMP 36.3; O2SAT 95
== END 2019-07-16 15:55 | disposition home or self-care (01) | DRG 807 ==
PROVIDERS: Advanced Practice Midwife; Admitting Provider Obstetrics & Gynecology; Visit Provider Obstetrics & Gynecology
DX: O70.0 First degree perineal laceration during delivery (principal); Z37.0 Single live birth; Z3A.39 39 weeks gestation of pregnancy
CPT/HCPCS: 59025; 59050; 76815; 85025; 85027; 86850; 86900; 86901; 99218; J7120; G0378

== ENCOUNTER 2019-07-23 22:53 | Outpatient (CLI) | payer OTHER, SELFPAY ==
[2019-07-23 23:15] VITALS: BMI 30.5
[2019-07-24] LABS: Hematocrit 37.2 % (37-47); Hemoglobin 12.4 g/dL (12.0-15.0); Mean Corp Hgb Conc 33.3 g/dL (32-36); Mean Corpuscular Hgb 31.1 pg (27.0-32.0); Mean Corpuscular Volume 93.2 fL (81-99); Mean Platelet Vol. 10.3 fl (6.2-12.0); Platelet Count 284 K/mm3 (150-450); RBC Distribution Width CV 12.1 % (11.6-14.6); RBC Distribution Width SD 41.6 fl (35.1-43.9); Red Blood Count 3.99 M/mm3 (4.2-5.4); White Blood Count 9.8 K/mm3 (4.4-11.0)
[2019-07-24 00:07] LABS: International Normalized Ratio 1.1; Prothrombin Time (Protime)PT. 13.5 SECONDS (11.7-14.9)
[2019-07-24 00:08] LABS: Partial Thromboplast Time 37.3 Seconds (24.1-36.2)
[2019-07-24 00:21] LABS: AST(SGOT) 14 U/L (15-37); Alanine Aminotransfer ALT/SGPT 31 U/L (13-56); Creatinine, Serum 0.62 mg/dL (0.55-1.02); EST Glomerular Filtration Rate 120 mL/min (>60); Est Glom Filt Rate - Afr Amer 145 mL/min (>60); Estimated Creatinine Clearance 105.89 ml/min; Protein, Urine (Random) 17.8 mg/dL (<11.9); Protein:Creat Ratio 288 mg/g CRE (0-200); Uric Acid 5.8 mg/dL (2.6-6.0)
[2019-07-24] MEDS: Rizatriptan Benzoate 5 MG Tablet PO (01:18)
--- NOTE | 2019-07-24 09:20 | PCM.PN.BLA ---
Progress Note Laboratory Tests 07/23/19 07/23/19 07/23/19 Range/Units 23:40 23:40 23:40 WBC (4.4-11.0) K/mm3 RBC (4.2-5.4) M/mm3 Hgb (12.0-15.0) g/dL Hct (37-47) % MCV (81-99) fL MCH (27.0-32.0) pg MCHC (32-36) g/dL RDW Std Deviation (35.1-43.9) fl RDW Coeff of Joi (11.6-14.6) % Plt Count (150-450) K/mm3 MPV (6.2-12.0) fl PT 13.5 (11.7-14.9) SECONDS INR 1.1 APTT 37.3 H (24.1-36.2) Seconds Creatinine 0.62 (0.55-1.02) mg/dL Estim Creat Clear Calc 105.89 ml/min Est GFR (MDRD) Af Amer 145 (>60) mL/min Est GFR (MDRD) Non-Af 120 (>60) mL/min Uric Acid 5.8 (2.6-6.0) mg/dL AST 14 L (15-37) U/L ALT 31 (13-56) U/L U Random Total Protein 17.8 H (<11.9) mg/dL Urine Creatinine 61.70 (NO RANGE EST.) mg/dL Protein/Creatinin Ratio 288 H (0-200) mg/g CRE 07/23/19 Range/Units 23:40 WBC 9.8 (4.4-11.0) K/mm3 RBC 3.99 L (4.2-5.4) M/mm3 Hgb 12.4 (12.0-15.0) g/dL Hct 37.2 (37-47) % MCV 93.2 (81-99) fL MCH 31.1 (27.0-32.0) pg MCHC 33.3 (32-36) g/dL RDW Std Deviation 41.6 (35.1-43.9) fl RDW Coeff of Joi 12.1 (11.6-14.6) % Plt Count 284 (150-450) K/mm3 MPV 10.3 (6.2-12.0) fl PT (11.7-14.9) SECONDS INR APTT (24.1-36.2) Seconds Creatinine (0.55-1.02) mg/dL Estim Creat Clear Calc ml/min Est GFR (MDRD) Af Amer (>60) mL/min Est GFR (MDRD) Non-Af (>60) mL/min Uric Acid (2.6-6.0) mg/dL AST (15-37) U/L ALT (13-56) U/L U Random Total Protein (<11.9) mg/dL Urine Creatinine (NO RANGE EST.) mg/dL Protein/Creatinin Ratio (0-200) mg/g CRE Vital Signs
--- NOTE | 2019-07-24 16:25 | OB.TRI.PN_ITS ---
Progress Notes Date of Service: 07/24/19 Progress Note: Came in with persistent headache. Has tried 1000mg of Tylenol Q4-6H, Motrin and heat. Little relief with anything. Does not get better with laying down, denies RUQ pain, blurred vision or spots. On admission had elevated BPs 140s/90s. Pre-e workup done with all labs resulting WNL. Provider came in to see patient. States headache is unilateral on the left side, +1 reflexes, - clonus, - edema, fundus u/4 firm, with scant rubra. Sinuses palpated and are nontender with no swelling noted. Reports hx of headaches about twice monthly, but would resolve with tylenol. Denies aura. Some sensitivity to sound and light with associated nausea. Has increased fluids which has not helped. Reports adequate amount of sleep. Discussed migraines and Imitrex. Maxalt given prior to discharge. May continue OTC and comfort measures, but educated on no more than 4000mg of Tylen ol in a 24H period. Rx for Imitrex given. To call if problem persists. May need to see PCP for workup with possible neurology consult if this is a problem she has dealt with for years. Laboratory Studies: Laboratory Tests 07/23/19 07/23/19 07/23/19 Range/Units 23:40 23:40 23:40 WBC (4.4-11.0) K/mm3 RBC (4.2-5.4) M/mm3 Hgb (12.0-15.0) g/dL Hct (37-47) % MCV (81-99) fL MCH (27.0-32.0) pg MCHC (32-36) g/dL RDW Std Deviation (35.1-43.9) fl RDW Coeff of Joi (11.6-14.6) % Plt Count (150-450) K/mm3 MPV (6.2-12.0) fl PT 13.5 (11.7-14.9) SECONDS INR 1.1 APTT 37.3 H (24.1-36.2) Seconds Creatinine 0.62 (0.55-1.02) mg/dL Estim Creat Clear Calc 105.89 ml/min Est GFR (MDRD) Af Amer 145 (>60) mL/min Est GFR (MDRD) Non-Af 120 (>60) mL/min Uric Acid 5.8 (2.6-6.0) mg/dL AST 14 L (15-37) U/L ALT 31 (13-56) U/L U Random Total Protein 17.8 H (<11.9) mg/dL Urine Creatinine 61.70 (NO RANGE EST.) mg/dL Protein/Creatinin Ratio 288 H (0-200) mg/g CRE 07/23/ Range/Units 23:40 WBC 9.8 (4.4-11.0) K/mm3 RBC 3.99 L (4.2-5.4) M/mm3 Hgb 12.4 (12.0-15.0) g/dL Hct 37.2 (37-47) % MCV 93.2 (81-99) fL MCH 31.1 (27.0-32.0) pg MCHC 33.3 (32-36) g/dL RDW Std Deviation 41.6 (35.1-43.9) fl RDW Coeff of Joi 12.1 (11.6-14.6) % Plt Count 284 (150-450) K/mm3 MPV 10.3 (6.2-12.0) fl PT (11.7-14.9) SECONDS INR APTT (24.1-36.2) Seconds Creatinine (0.55-1.02) mg/dL Estim Creat Clear Calc ml/min Est GFR (MDRD) Af Amer (>60) mL/min Est GFR (MDRD) Non-Af (>60) mL/min Uric Acid (2.6-6.0) mg/dL AST (15-37) U/L ALT (13-56) U/L U Random Total Protein (<11.9) mg/dL Urine Creatinine (NO RANGE EST.) mg/dL Protein/Creatinin Ratio (0-200) mg/g CRE
== END 2019-07-24 01:20 | disposition home or self-care (01) ==
LOC: WPOUT 23:02 → WP 23:03
PROVIDERS: Obstetrics & Gynecology; Referring Provider Obstetrics & Gynecology; Visit Provider Obstetrics & Gynecology
DX: O26.899 Other specified pregnancy related conditions, unspecified trimester (principal); R51 Headache; R03.0 Elevated blood-pressure reading, without diagnosis of hypertension; Z3A.00 Weeks of gestation of pregnancy not specified
CPT/HCPCS: 36415; 82565; 82570; 84156; 84450; 84460; 84550; 85027; 85610; 85730; 94760; 99218; G0378

== ENCOUNTER → 2020-01-23 13:05 | Outpatient (CLI) | payer OTHER, SELFPAY ==
[2020-01-23 20:23] LABS: Chlamydia Trachomatis by PCR Negative (Negative); Neisserai gonorrhoeae by PCR Negative (Negative); Probe Check PASS; Sample Adequacy Control PASS; Specimen Processing Control PASS
== END ==
PROVIDERS: Referring Provider Obstetrics & Gynecology; Visit Provider Obstetrics & Gynecology
DX: Z11.3 Encounter for screening for infections with a predominantly sexual mode of transmission (principal); Z32.01 Encounter for pregnancy test, result positive
CPT/HCPCS: 87491; 87591

== ENCOUNTER → 2020-02-08 | Outpatient (CLI) | payer OTHER, SELFPAY ==
[2020-02-08 16:45] LABS: Absolute Neutrophil Count 8.5 X10^3/uL (2.0-7.7); Basophil# 0.04 X10^3/uL; Basophil% 0.3 % (0-1); Eosinophil# 0.12 X10^3/uL; Hematocrit 37.2 % (37-47); Hemoglobin 12.9 g/dL (12.0-15.0); Lymphocyte % 18.7 % (19-41); Mean Corp Hgb Conc 34.7 g/dL (32-36); Mean Corpuscular Hgb 31.7 pg (27.0-32.0); Mean Corpuscular Volume 91.4 fL (81-99); Mean Platelet Vol. 11.8 fl (6.2-12.0); Monocyte# 0.86 X10^3/uL; Monocyte% 7.3 % (0-10); NRBC Flagged by Analyzer 0 % (0-5); Neutrophil # 8.52 X10^3/uL (2.7-7.7); Neutrophil % 72.4 % (47-70); Platelet Count 213 K/mm3 (150-450); RBC Distribution Width CV 12.4 % (11.6-14.6); RBC Distribution Width SD 41.4 fl (35.1-43.9); Red Blood Count 4.07 M/mm3 (4.2-5.4); White Blood Count 11.8 K/mm3 (4.4-11.0)
[2020-02-08 16:48] LABS: Color, Urine Yellow (Yellow); Glucose, Dipstick Normal (Normal); Ketone-Dipstick 5 mg/dl (Negative); Leukocyte Esterase-Dipstick 100 /ul (Negative); Nitrite-Dipstick Negative (Negative); Occult Blood-Urine 10 /ul (Negative); Protein-Dipstick Negative (Negative); Urine Bilirubin Dipstick Negative (Negative); Urine Clarity Clear (Clear); Urine Urobilinogen 1 mg/dl (Normal); Urine pH 6.5 (5.0 - 8.0)
[2020-02-08 17:03] LABS: Amphetamine Urine VISTA NEGATIVE (<1000 ng/mL); Barbiturate Urine VISTA NEGATIVE (< 200 ng/mL); Benzodiazepine Urine VISTA NEGATIVE (< 200 ng/mL); Cocaine Urine VISTA NEGATIVE (< 300 ng/mL); Ecstacy Urine VISTA POSITIVE (< 500 ng/mL); Methadone Urine VISTA NEGATIVE (< 300 ng/mL); PCP Urine VISTA NEGATIVE (< 25 ng/mL); THC Urine VISTA NEGATIVE (< 50 ng/mL); Vista UDS pH Range 6
[2020-02-08 17:29] LABS: Thyroid Stim Hormone (TSH) 1.93 uIU/mL (0.358-3.74)
[2020-02-09 09:22] LABS: HIV - WCH Non-Reactive (Nonreactive); Hepatitis B Surface Antigen Non-Reactive (Nonreactive); Hepatitis C Antibody Non-Reactive (Nonreactive); Rubella IgG 70.6 IU/mL; Vitamin D,25 Hydroxy 21.6 ng/mL
[2020-02-14 21:56] LABS: Prenatal RPR NONREACTIVE (NONREACTIVE)
== END | disposition home or self-care (01) ==
LOC: WOBLAB 15:52
PROVIDERS: Visit Provider Obstetrics & Gynecology
DX: Z34.81 Encounter for supervision of other normal pregnancy, first trimester (principal)
CPT/HCPCS: 36415; 80307; 81002; 82306; 84443; 85025; 86703; 86762; 86803; 87340

== ENCOUNTER → 2020-04-03 | Outpatient (CLI) | payer OTHER, SELFPAY ==
[2020-04-03 18:24] LABS: Amphetamine Urine VISTA NEGATIVE (<1000 ng/mL); Barbiturate Urine VISTA NEGATIVE (< 200 ng/mL); Benzodiazepine Urine VISTA NEGATIVE (< 200 ng/mL); Cocaine Urine VISTA NEGATIVE (< 300 ng/mL); Ecstacy Urine VISTA NEGATIVE (< 500 ng/mL); Methadone Urine VISTA NEGATIVE (< 300 ng/mL); PCP Urine VISTA NEGATIVE (< 25 ng/mL); THC Urine VISTA NEGATIVE (< 50 ng/mL); Vista UDS pH Range 5
== END | disposition home or self-care (01) ==
LOC: LABSPEC 16:39
PROVIDERS: Visit Provider Obstetrics & Gynecology
DX: Z34.82 Encounter for supervision of other normal pregnancy, second trimester (principal)
CPT/HCPCS: 80307

== ENCOUNTER → 2020-04-18 16:40 | Outpatient (CLI) | payer OTHER, SELFPAY ==
[2020-04-18 18:38] LABS: Anion Gap 7 (5-15); BUN 8 mg/dL (7-18); BUN/Creat Ratio 15.9 RATIO (10-20); Chloride 105 mmol/L (98-107); EST Glomerular Filtration Rate 153 mL/min (>60); Est Glom Filt Rate - Afr Amer 186 mL/min (>60); Glucose 84 mg/dL (74-106); Potassium 3.5 mmol/L (3.5-5.1); Sodium Level 139 mmol/L (136-145); Uric Acid 3.7 mg/dL (2.6-6.0)
== END ==
PROVIDERS: PCP Family Medicine; Referring Provider Family Medicine; Visit Provider Family Medicine
DX: M79.676 Pain in unspecified toe(s) (principal)
CPT/HCPCS: 36415; 80048; 84550

== ENCOUNTER → 2020-07-05 08:49 | Outpatient (CLI) | payer OTHER, SELFPAY ==
[2020-07-05 11:11] LABS: Hematocrit 35.6 % (37-47); Hemoglobin 11.5 g/dL (12.0-15.0); Mean Corp Hgb Conc 32.3 g/dL (32-36); Mean Corpuscular Hgb 31.3 pg (27.0-32.0); Mean Platelet Vol. 10.9 fl (6.2-12.0); Platelet Count 174 K/mm3 (150-450); RBC Distribution Width SD 45.8 fl (35.1-43.9); Red Blood Count 3.67 M/mm3 (4.2-5.4); White Blood Count 10.7 K/mm3 (4.4-11.0)
[2020-07-05 11:21] LABS: Glucose Challenge Gest 1H 50g 131 mg/dL (70-140)
== END ==
PROVIDERS: PCP Family Medicine; Visit Provider Obstetrics & Gynecology
DX: Z34.83 Encounter for supervision of other normal pregnancy, third trimester (principal)
CPT/HCPCS: 36415; 82950; 85027

== ENCOUNTER → 2020-08-26 | Outpatient (CLI) | payer OTHER, SELFPAY | END | disposition home or self-care (01) | LOC: LABSPEC 17:30 | PROVIDERS: PCP Family Medicine; Visit Provider Student in an Organized Health Care Education/Training Program | DX: Z36.85 Encounter for antenatal screening for Streptococcus B (principal) | CPT/HCPCS: 87077; 87081; 87186 ==

== ENCOUNTER → 2020-09-23 17:15 | Outpatient (CLI) | payer OTHER, SELFPAY | PROVIDERS: PCP Family Medicine; Referring Provider Family Medicine; Visit Provider Family Medicine | DX: Z20.822 Contact with and (suspected) exposure to COVID-19 (principal) | CPT/HCPCS: 87635; C9803; U0003 ==

== ENCOUNTER 2020-09-26 21:25 | Inpatient (IN) | payer OTHER, SELFPAY ==
[2020-09-26] VITALS (10 sets, daily range): BP systolic 128–146; BP diastolic 74–88; PULSE 90–102; TEMP 37.4–38.1; O2SAT 94; BMI 33.2
[2020-09-26] MEDS: Lactated Ringers 500 ML 999 ML IV (22:00)
[2020-09-26 22:10] LABS: Absolute Lymphocyte Count 3.03 X10^3/uL (0.83-4.51); Absolute Neutrophil Count 5.7 X10^3/uL (2.0-7.7); Basophil# 0.08 X10^3/uL; Basophil% 0.8 % (0-1); Eosinophil# 0.06 X10^3/uL; Eosinophils% 0.6 % (0-5); Hematocrit 36.2 % (37-47); Hemoglobin 12.6 g/dL (12.0-15.0); Lymphocyte # 3.03 X10^3/ul (4.0); Lymphocyte % 31.4 % (19-41); Mean Corp Hgb Conc 34.8 g/dL (32-36); Mean Corpuscular Hgb 31.9 pg (27.0-32.0); Mean Corpuscular Volume 91.6 fL (81-99); Mean Platelet Vol. 10.7 fl (6.2-12.0); Monocyte# 0.66 X10^3/uL; Monocyte% 6.8 % (0-10); NRBC Flagged by Analyzer 0 % (0-5); Neutrophil # 5.71 X10^3/uL (2.7-7.7); Neutrophil % 59.3 % (47-70); POSITIVE MORPHOLOGY YES; Platelet Count 167 K/mm3 (150-450); RBC Distribution Width CV 12.9 % (11.6-14.6); RBC Distribution Width SD 42.6 fl (35.1-43.9); Red Blood Count 3.95 M/mm3 (4.2-5.4); White Blood Count 9.7 K/mm3 (4.4-11.0)
[2020-09-26 22:12] LABS: Differential Indicated SCAN CRITERIA MET
[2020-09-26] MEDS: Oxytocin 30 units/NS 500 ml 30 UNITS/500 ML IV.SOLN 334 UNITS IV (22:30)
[2020-09-26 22:35] LABS: Atypical Lymphocyte 1+ %
[2020-09-26 22:36] LABS: Anisocytosis RARE; Macrocytosis RARE; Platelet Estimate ADEQUATE (ADEQ); Red Cell Morphology N CHROM NORMAL (NORM C&C)
--- NOTE | 2020-09-26 22:55 | PCM.HPOB.BLA ---
History and Physical Chief complaint: Leakage of fluid History of present illness: 30-year-old G3, P2 at 40 weeks and 3 days with TERRENCE: 09/23/2019 1 x 8-week ultrasound arrives with leakage of clear fluid. Denies headache, visual changes, nausea, vomiting, chest pain, shortness of breath, right upper quadrant pain. Patient states good movement. complicated by GBS positive, polyhydramnios Obstetric history: G1: 38-week male 04/04/2016 G2: 39-week female 07/16/2019 G3: Current Past medical history: None Past surgical history: Cholecystectomy, wisdom teeth extraction Medications: vitamin Allergies: No known drug allergies Social history: Denies smoking, alcohol use, drug use Review of systems: Besides the above pertinent positives a full review of systems was performed and found to be negative Physical exam: Vital Signs Temp Pulse BP Pulse Ox 09/26/20 22:51 94 146/76 H 09/26/20 22:50 99.7 F H 09/26/20 22:09 92 94 09/26/20 22:07 90 129/88 H General: Normal-appearing no acute distress HEENT: Normocephalic atraumatic no cervical lymphadenopathy Cardiac: Regular rate and rhythm no murmurs rubs or gallops Respiratory: Clear to auscultation bilaterally no wheezes or crackles Abdomen: Soft, nontender, gravid. Extremities: No peripheral edema normal peripheral pulses Psych: Normal affect normal demeanor nonpressured speech Mom's Labs & Results 09/26/20 09/26/20 21:55 21:55 WBC 9.7 RBC 3.95 L Hgb 12.6 Hct 36.2 L MCV 91.6 MCH 31.9 MCHC 34.8 RDW Std Deviation 42.6 RDW Coeff of Joi 12.9 Plt Count 167 MPV 10.7 Immature Gran % (Auto) 1.100 H Neut % (Auto) 59.3 Lymph % (Auto) 31.4 [place] % (Auto) 6.8 Eos % (Auto) 0.6 Baso % (Auto) 0.8 Absolute Neuts (auto) 5.7 Absolute Lymphs (auto) 3.03 Nucleated RBC % 0 Atypical Lymphocytes 1+ Platelet Estimate ADEQUATE RBC Morphology N CHROM Anisocytosis RARE Macrocytosis RARE Blood Type Pending Antibody Screen Pending Labs Blood Type: O RH: POSITIVE RPR/VDRL/Syphilis Nonreactive Rubella status Immune HbSAg Negative Date Done: 02/08/20 Chlamydia Negative Gonorrhea Negative HIV/AIDS Non-Reactive Group B Strep: Positive Assessment and plan: Is a 30-year-old at 40 weeks and 3 days spontaneous rupture of membranes. -[facility] -GBS positive start penicillin -CEFM -Anesthesia to see
--- NOTE | 2020-09-26 22:59 | PCM.OPRPT ---
Vaginal Delivery Date of Procedure: 09/26/20 Pre-Operative Diagnosis: Term, spontaneous rupture of membranes Post-Operative Diagnosis: Term, spontaneous rupture membranes Surgery/ Procedure Performed: Spontaneous Vaginal Delivery Type of Anesthesia: None Description of Procedure: Called to room by nursing for precipitous vaginal delivery of a viable female infant, vertex. Head and shoulders delivered. Cord cut and clamped. Placenta delivered via cord traction and fundal massage. First-degree perineal laceration noted and repaired in typical fashion. EBL 200 cc, Apgars 8/9
--- NOTE | 2020-09-26 23:02 | DCINST_ITS ---
Discharge Diet: No Restrictions Discharge Activity: Return to Normal Activity, May Drive, May Shower May resume sexual activity in: 2 weeks Weight Bearing Status: Weight bearing as tolerated Call your doctor if your incision/area has: Foul Smelling Discharge Call your doctor if you observe: Fever of 101 or Higher, Shortness of breath, Chest pain Additional Instructions: If you experience any of the following, contact your healthcare provider. * Bleeding that soaks a pad every hour for 2 hours * Fever 100.4 or higher * Unrelieved incision or abdominal pain * Swelling, redness, discharge or bleeding from your incision or episiotomy site * Your incision begins to separate * Problems urinating (including inability to urinate or burning while urinating). * Visual changes * Severe headache * Flu-like symptoms * Pain or redness in one of both of your breasts * Pain, warmth, tenderness or swelling in your legs, especially the calf area * Frequent nausea and vomiting * Symptoms of depression or anxiety If you experience any of the following, call 911 or go to the nearest Emergency Room. * Chest pain * Problems breathing * Seizure activity * Partial or complete paralysis of a body part, slurred speech, weakness or drooping of the face, or a sudden inability to walk or hold your balance Allergies/Adverse Reactions: Allergies No Known Allergies Allergy (Verified 09/26/20 23:37) Medications to take at Discharge Acetaminophen [Tylenol Extra Strength] 500 - 1,000 mg PO Q6H PRN PRN 07/23/19 Vits [Prenatabs FA ] 1 tab PO DAILY 09/26/20 Please Follow Up With: Davy Hansen MD When: 4 to 6 weeks Primary Care Physician: Yvan Yang MD [Primary Care Provider] - Test Results: Test results from this visit will be discussed in further detail at your follow- up appointment, if applicable.
[2020-09-26] MEDS: Ibuprofen 600 MG Tablet PO (23:33)
[2020-09-27] VITALS (9 sets, daily range): BP systolic 113–134; BP diastolic 71–90; PULSE 80–101; RESP 16–18; TEMP 36.4–37.7; O2SAT 96–97
[2020-09-27] MEDS: Ibuprofen 600 MG Tablet PO ×3 (05:34→18:39)
--- NOTE | 2020-09-27 08:04 | PN.OBGYN_ITS ---
Subjective: No overnight complaints. Pain well controlled. - Physical Exam Vitals/I&O's: Vital Signs Temp Pulse Resp BP Pulse Ox 98.6 F 80 16 116/71 94 09/27/20 03:23 09/27/20 03:23 09/27/20 03:23 09/27/20 03:23 09/26/20 22:09 Oxygen Delivery Method Room Air Weight: 187 lb 9.6 oz Body Mass Index (BMI) 33.2 Intake and Output for Last 24 Hours 09/25/20 09/26/20 09/27/20 23:59 23:59 23:59 Intake Total 555.85 / 555.85 316.3 / 316.3 Output Total 400 / 400 Balance 555.85 / 555.85 -83.7 / -83.7 General: Alert, Oriented x3, Cooperative, No apparent distress HEENT: Atraumatic, Normocephalic Oral: Moist Mucosa Neck: Supple, No JVD Abdomen: Soft, Non Tender, - - Uterus firm and below umbilicus Extremities: No clubbing, No cyanosis, No edema Neurological: Neuro grossly intact Psych/Mental Status: Normal Affect, Appropriate, Alert and oriented to time, place, person, mood and affect Laboratory Results 09/26/20 21:55: WBC 9.7, RBC 3.95 L, Hgb 12.6, Hct 36.2 L, MCV 91.6, MCH 31.9, MCHC 34.8, RDW Std Deviation 42.6, RDW Coeff of Joi 12.9, Plt Count 167, MPV 10.7, Immature Gran % (Auto) 1.100 H, Neut % (Auto) 59.3, Lymph % (Auto) 31.4, [place] % (Auto) 6.8, Eos % (Auto) 0.6, Baso % (Auto) 0.8, Absolute Neuts (auto) 5.7, Absolute Lymphs (auto) 3.03, Nucleated RBC % 0, Atypical Lymphocytes 1+, Platelet Estimate ADEQUATE, RBC Morphology N CHROM, Anisocytosis RARE, Macrocytosis RARE 09/26/20 21:55: Blood Type O POSITIVE, Antibody Screen NEGATIVE Current Medications Acetaminophen (Acetaminophen 500 Mg Tablet) 1,000 mg PO Q8H PRN PRN PRN Reason: Pain Score 1-3 Bisacodyl (Bisacodyl 10 Mg Suppository) 10 mg RECTAL UD PRN PRN Reason: If no BM Dibucaine (Dibucaine 30 Gm Tube) 1 applic TOPICAL TID PRN PRN; Protocol PRN Reason: Discomfort Hydrocortisone (Hydrocortisone 2.5% Crm) 1 applic TOPICAL TID PRN PRN; Protocol PRN Reason: Discomfort Ibuprofen (Ibuprofen 600 Mg Tablet) 600 mg PO Q6H PRN PRN PRN Reason: Pain Score 1-3 Last Admin: 09/27/20 05:34 Dose: 600 mg Documented by: Ondansetron HCl (Ondansetron 4 Mg/2 Ml Vial) 4 mg IV Q4H PRN PRN PRN Reason: Nausea Oxycodone HCl (Oxycodone 5 Mg Tablet) 5 mg PO Q4H PRN PRN PRN Reason: Pain Score 4-10 Senna/Docusate Sodium (Senna/Docusate Sodium 1 Tablet) 1 - 2 tablet PO DAILY PRN PRN PRN Reason: Constipation Simethicone (Simethicone 80 Mg Tablet) 80 mg PO PCHS PRN PRN Reason: Indigestion/Stomach pain Sodium Chloride (0.9% Saline Lock 10 Ml Syringe) 5 - 15 ml IV UD PRN PRN Reason: SALINE FLUSH Medical Necessity - Tobacco Use Smoking Status: Never smoker Assessment/Plan day 1. Breast-feeding. Pain well controlled. Baby for GBS observation. Possibly home tomorrow or hotel status for patient
[2020-09-27] MEDS: Acetaminophen 500 MG Tablet 1000 MG PO ×2 (09:41→20:22)
[2020-09-28 01:03] VITALS: BP 133/74; PULSE 83; RESP 14; TEMP 36.3
[2020-09-28] MEDS: Ibuprofen 600 MG Tablet PO (05:08)
[2020-09-28 08:50] VITALS: BP 115/74; PULSE 85; RESP 16; TEMP 36.3
--- NOTE | 2020-09-28 11:44 | PCM.PN.OB ---
Subjective: No overnight complaints. Pain well controlled. Minimal lochia - Physical Exam Vitals/I&O's: Vital Signs Temp Pulse Resp BP Pulse Ox 97.4 F L 85 16 115/74 97 09/28/20 08:50 09/28/20 08:50 09/28/20 08:50 09/28/20 08:50 09/27/20 16:02 Oxygen Delivery Method Room Air Weight: 187 lb 9.6 oz Body Mass Index (BMI) 33.2 Intake and Output for Last 24 Hours 09/26/20 09/27/20 09/28/20 23:59 23:59 23:59 Intake Total 555.85 / 555.85 316.3 / 316.3 Output Total 400 / 400 Balance 555.85 / 555.85 -83.7 / -83.7 General: Alert, Oriented x3, Cooperative, No apparent distress HEENT: Atraumatic, PERRLA, Normocephalic Oral: Moist Mucosa Neck: Supple Abdomen: Soft, Non Tender, - - Uterus firm and below umbilicus Neurological: Neuro grossly intact Psych/Mental Status: Normal Affect, Appropriate, Alert and oriented to time, place, person, mood and affect Current Medications Acetaminophen (Acetaminophen 500 Mg Tablet) 1,000 mg PO Q8H PRN PRN PRN Reason: Pain Score 1-3 Last Admin: 09/27/20 20:22 Dose: 1,000 mg Documented by: Bisacodyl (Bisacodyl 10 Mg Suppository) 10 mg RECTAL UD PRN PRN Reason: If no BM Dibucaine (Dibucaine 30 Gm Tube) 1 applic TOPICAL TID PRN PRN; Protocol PRN Reason: Discomfort Hydrocortisone (Hydrocortisone 2.5% Crm) 1 applic TOPICAL TID PRN PRN; Protocol PRN Reason: Discomfort Ibuprofen (Ibuprofen 600 Mg Tablet) 600 mg PO Q6H PRN PRN PRN Reason: Pain Score 1-3 Last Admin: 09/28/20 05:08 Dose: 600 mg Documented by: Ondansetron HCl (Ondansetron 4 Mg/2 Ml Vial) 4 mg IV Q4H PRN PRN PRN Reason: Nausea Oxycodone HCl (Oxycodone 5 Mg Tablet) 5 mg PO Q4H PRN PRN PRN Reason: Pain Score 4-10 Senna/Docusate Sodium (Senna/Docusate Sodium 1 Tablet) 1 - 2 tablet PO DAILY PRN PRN PRN Reason: Constipation Simethicone (Simethicone 80 Mg Tablet) 80 mg PO PCHS PRN PRN Reason: Indigestion/Stomach pain Sodium Chloride (0.9% Saline Lock 10 Ml Syringe) 5 - 15 ml IV UD PRN PRN Reason: SALINE FLUSH Medical Necessity - Tobacco Use Smoking Status: Never smoker Assessment/Plan day 2. Breast-feeding. Pain well controlled. Okay to discharge home today.
== END 2020-09-28 12:15 | disposition home or self-care (01) | DRG 807 ==
PROVIDERS: Admitting Provider Obstetrics & Gynecology; PCP Family Medicine; Visit Provider Obstetrics & Gynecology
DX: O99.824 Streptococcus B carrier state complicating childbirth (principal); O40.3XX0 Polyhydramnios, third trimester, not applicable or unspecified; O62.3 Precipitate labor; O70.0 First degree perineal laceration during delivery; Z3A.40 40 weeks gestation of pregnancy; Z37.0 Single live birth
CPT/HCPCS: 59025; 59050; 85025; 86850; 86900; 86901; 99218; J7120; G0378

== ENCOUNTER → 2021-07-17 16:18 | Outpatient (CLI) | payer OTHER, SELFPAY ==
--- NOTE | 2021-07-17 16:21 | RAD_ITS ---
INDICATION: PAIN EXAMINATION/TECHNIQUE: X-RAY - XR Spine Lumbar Min 4 Views COMPARISON: None. FINDINGS: VERTEBRAE: Preserved vertebral body height. Questionable bilateral L5-S1 pars defects. No spondylolisthesis. Preservation of the normal lumbar lordosis. Mild multilevel facet arthropathy. DISCS: Disc spaces are maintained. INCLUDED ABDOMEN: Included bowel gas pattern is non-obstructive. RAD/L/S Spine Min 4 Views IMPRESSION: Questionable bilateral L5-S1 pars defects. No other acute abnormalities. Electronically Signed: Arie Luis MD at 16:47 EST Tel , Service support ,
== END ==
PROVIDERS: PCP Family Medicine; Referring Provider Family Medicine; Visit Provider Family Medicine
DX: M54.50 Low back pain, unspecified (principal)
CPT/HCPCS: 72110

== ENCOUNTER 2021-11-17 14:49 | Outpatient (CLI) | payer BC, SELFPAY ==
[2021-11-17 16:55] LABS: Absolute Lymphocyte Count 2.05 X10^3/uL (0.83-4.51); Absolute Neutrophil Count 5.9 X10^3/uL (2.0-7.7); Basophil# 0.04 X10^3/uL; Basophil% 0.5 % (0-1); Eosinophil# 0.13 X10^3/uL; Eosinophils% 1.5 % (0-5); Hematocrit 37.7 % (37-47); Lymphocyte # 2.05 X10^3/ul (0.83-4.51); Lymphocyte % 23.3 % (19-41); Mean Corp Hgb Conc 34.5 g/dL (32-36); Mean Corpuscular Hgb 31.3 pg (27.0-32.0); Mean Corpuscular Volume 90.6 fL (81-99); Mean Platelet Vol. 11.7 fl (6.2-12.0); Monocyte# 0.63 X10^3/uL; Monocyte% 7.2 % (0-10); NRBC Flagged by Analyzer 0 % (0-5); Neutrophil # 5.91 X10^3/uL (2.7-7.7); Neutrophil % 67.2 % (47-70); Platelet Count 210 K/mm3 (150-450); RBC Distribution Width CV 12.6 % (11.6-14.6); RBC Distribution Width SD 41.4 fl (35.1-43.9); Red Blood Count 4.16 M/mm3 (4.2-5.4); White Blood Count 8.8 K/mm3 (4.4-11.0)
[2021-11-18 09:32] LABS: HIV - WCH Non-Reactive (Nonreactive); Hepatitis B Surface Antigen Non-Reactive (Nonreactive); Hepatitis C Antibody Non-Reactive (Nonreactive); Rubella IgG Reactive (Nonreactive); Syphilis Antibodies Non-reactive
[2021-11-19 22:07] LABS: Chlamydia By Nucleic Acid AMP Negative (Negative)
[2021-11-20 13:32] LABS: Gonococcus By Nucleic Acid AMP Negative (Negative)
[2021-11-22 09:22] LABS: HPV APTIMA, High Risk Negative (Negative)
== END 2021-11-17 23:59 | disposition home or self-care (01) ==
LOC: WOBLAB 14:51
PROVIDERS: PCP Family Medicine; Visit Provider Obstetrics & Gynecology
DX: Z34.81 Encounter for supervision of other normal pregnancy, first trimester (principal)
CPT/HCPCS: 36415; 85025; 86703; 86762; 86780; 86803; 87077; 87086; 87088; 87186; 87340; 87491; 87591; 87624; 88175; G0145

== ENCOUNTER → 2022-04-28 | Outpatient (CLI) | payer BC, SELFPAY ==
[2022-04-28 09:46] LABS: Absolute Lymphocyte Count 1.57 X10^3/uL (0.83-4.51); Absolute Neutrophil Count 8.1 X10^3/uL (2.0-7.7); Basophil# 0.04 X10^3/uL; Basophil% 0.4 % (0-1); Eosinophil# 0.15 X10^3/uL; Eosinophils% 1.4 % (0-5); Hematocrit 31.2 % (37-47); Hemoglobin 10.7 g/dL (12.0-15.0); Lymphocyte # 1.57 X10^3/ul (0.83-4.51); Lymphocyte % 14.3 % (19-41); Mean Corp Hgb Conc 34.3 g/dL (32-36); Mean Corpuscular Hgb 32.4 pg (27.0-32.0); Mean Corpuscular Volume 94.5 fL (81-99); Mean Platelet Vol. 11.3 fl (6.2-12.0); Monocyte# 0.79 X10^3/uL; Monocyte% 7.2 % (0-10); NRBC Flagged by Analyzer 0 % (0-5); Neutrophil # 8.14 X10^3/uL (2.7-7.7); Neutrophil % 74.3 % (47-70); Platelet Count 162 K/mm3 (150-450); RBC Distribution Width SD 44.2 fl (35.1-43.9)
[2022-04-28 09:56] LABS: Glucose Challenge Gest 1H 50g 126 mg/dL (70-140)
== END | disposition home or self-care (01) ==
LOC: WOBLAB 09:03
PROVIDERS: PCP Family Medicine; Visit Provider Obstetrics & Gynecology
DX: Z34.83 Encounter for supervision of other normal pregnancy, third trimester (principal)
CPT/HCPCS: 36415; 82950; 85025

== ENCOUNTER → 2022-06-12 | Outpatient (CLI) | payer BC, SELFPAY | END | disposition home or self-care (01) | LOC: LABSPEC 13:30 | PROVIDERS: PCP Family Medicine; Visit Provider Obstetrics & Gynecology | DX: Z36.85 Encounter for antenatal screening for Streptococcus B (principal) | CPT/HCPCS: 87077; 87081; 87186 ==

== ENCOUNTER 2022-07-11 08:15 | Inpatient (IN) | payer BC, SELFPAY ==
[2022-07-11] VITALS (57 sets, daily range): BP systolic 110–156; BP diastolic 58–92; PULSE 65–107; TEMP 36.8–37.3; O2SAT 95–99; BMI 32.3
[2022-07-11] MEDS: Lactated Ringers 1,000 ML 50 ML IV (08:37)
[2022-07-11 08:46] LABS: Absolute Lymphocyte Count 2.15 X10^3/uL (0.83-4.51); Absolute Neutrophil Count 10.6 X10^3/uL (2.0-7.7); Basophil# 0.07 X10^3/uL; Basophil% 0.5 % (0-1); Eosinophil# 0.09 X10^3/uL; Eosinophils% 0.6 % (0-5); Hemoglobin 12.2 g/dL (12.0-15.0); Lymphocyte # 2.15 X10^3/ul (0.83-4.51); Lymphocyte % 15.2 % (19-41); Mean Corp Hgb Conc 33.9 g/dL (32-36); Mean Corpuscular Volume 91.4 fL (81-99); Mean Platelet Vol. 10.7 fl (6.2-12.0); Monocyte# 0.98 X10^3/uL; Monocyte% 6.9 % (0-10); NRBC Flagged by Analyzer 0 % (0-5); Neutrophil # 10.62 X10^3/uL (2.7-7.7); Neutrophil % 74.9 % (47-70); Platelet Count 221 K/mm3 (150-450); RBC Distribution Width CV 13.4 % (11.6-14.6); RBC Distribution Width SD 44.9 fl (35.1-43.9); Red Blood Count 3.94 M/mm3 (4.2-5.4); White Blood Count 14.2 K/mm3 (4.4-11.0)
[2022-07-11] MEDS: LACTATED RINGERS 500 ML 999 ML IV (09:37)
[2022-07-11] MEDS: fentaNYL-bupivacaine (epidural) 100 ML BAG EPIDURAL ×2 (10:56→14:34)
[2022-07-11] MEDS: Penicillin G 3,000,000 Units 50 ML 100 UNITS IV ×2 (12:22→16:58)
[2022-07-11] MEDS: Lactated Ringers 1,000 ML 200 ML IV (15:02)
--- NOTE | 2022-07-11 16:29 | PCM.HP.BLA ---
History and Physical Date of Admission: 07/11/22 Chief complaint: Leakage of fluid History present illness: 32-year-old at 40 weeks and 2 days with TERRENCE 07/09/2022 arrives with leakage of clear fluid. Denies headache, visual changes, chest pain, shortness of breath, nausea vomit, right upper quadrant pain. Patient states good movement. Obstetric history: G1: 38-week male 7 pounds 10 ounces G2: 39-week female 8 pounds 6 ounces G3: 40-week female 8 pounds 12 ounces G4: Current Past medical history: None Medications: vitamin Past surgical history: Cholecystectomy Allergies: No known drug allergies Social history: Denies smoking, alcohol, drug use Family history: Denies history DVT or PE Review of systems: Besides above pertinent positives a full review of systems was performed and found to be negative Physical exam: Vitals: Blood pressure 138/80 pulse 84 temperature 99.1 ?F SPO2 97% on room air General: Normal-appearing no acute distress HEENT: Normocephalic/atraumatic no cervical lymphadenopathy Cardiac/respiratory: No use accessory muscles, nonlabored breathing Abdomen: Soft, nontender, gravid Pelvic exam: Cervical exam 470/-2. AROM of fore bag Extremities: No peripheral edema normal peripheral pulses Psych: Normal affect normal demeanor nonpressured speech Bedside ultrasound: Cephalic Labs: White blood cell count 14.2 hemoglobin 12.2 hematocrit 36.0% platelets 221. Blood type O+ antibody negative Assessment plan: 32-year-old at 40 weeks and 2 days with SROM. Patient seen and examined with fore bag now AROM. Will replace epidural to increase comfort and start Pitocin Admit labor and delivery See EFM GBS positive for penicillin Routine orders Anesthesia to see
[2022-07-11] MEDS: Oxytocin 15 Units/NS 250ml 15 UNITS/250 ML IV.SOLN 2 UNITS IV (16:58)
[2022-07-11] MEDS: Acetaminophen 500 MG Tablet PO (17:56)
--- NOTE | 2022-07-11 19:12 | EX.PCM.OBRPT ---
Vaginal Delivery Findings Description of Procedure: Normal spontaneous vaginal delivery of a viable female infant, vertex NADEGE. Head and shoulders delivered with ease. Cord clamped and cut. Baby handed off to patient. Placenta delivered via cord traction and fundal massage. First-degree midline perineal laceration noted and repaired in typical fashion. EBL 250 cc Apgars 9/9
[2022-07-11] MEDS: Ibuprofen 600 MG Tablet PO (22:51)
[2022-07-12] VITALS (11 sets, daily range): BP systolic 120–138; BP diastolic 69–78; PULSE 75–95; RESP 16–17; TEMP 36.4–36.9; O2SAT 95–98
[2022-07-12] MEDS: Acetaminophen 500 MG Tablet 1000 MG PO ×3 (04:05→16:48)
[2022-07-12] MEDS: Ibuprofen 600 MG Tablet PO ×3 (07:21→19:57)
--- NOTE | 2022-07-12 09:40 | PCM.PN.OB ---
Subjective Subjective No overnight complaints Objective Data Objective Data Vital Signs: Vital Signs Temp Pulse Resp BP Pulse Ox O2 Del Method 98.2 F 78 16 126/78 H 97 Room Air 07/12/22 07:18 07/12/22 07:18 07/12/22 07:18 07/12/22 07:18 07/12/22 07:18 07/12/22 07:18 Oxygen Delivery Method Room Air Weight: 182 lb 3.2 oz Body Mass Index (BMI) 32.3 Intake & Output: Intake and Output for Last 24 Hours 07/10/22 07/11/22 07/12/22 23:59 23:59 23:59 Intake Total 2641.67 / 2641.67 Output Total 1400 / 1400 600 / 600 Balance 1241.67 / 1241.67 -600 / -600 Lab / Micro Data Result Diagrams: 07/11/22 08:30 Labs: Laboratory Results - last 24 hr 07/11/22 08:30: Blood Type O POSITIVE, Antibody Screen NEGATIVE 07/11/22 19:00: ABO/Rh Cancelled, A1 Antigen Typing Cancelled, Rho(D) Type Cancelled, Rho(D) Tech Interpret Cancelled, Direct Antiglob Test Cancelled, Baby's Blood Type Cancelled Physical Exam Const alert, oriented x3, no apparent distress, average body habitus, healthy appearing and well nourished HEENT normocephalic and moist oral mucous membranes Eyes PERRL Resp normal respiratory effort, no retractions and no use of accessory muscles GI GI Narrative: Soft, nontender, uterus firm and below umbilicus Extremity normal to inspection and full ROM Neuro moves all extremities and no focal motor deficits Psych mental status grossly normal, affect normal, speech normal and activity/motor behavior normal Assessment & Plan (1) Vaginal delivery: PLAN: day 1. Breast-feeding. Pain well controlled. Likely home tomorrow
[2022-07-12] MEDS: Senna/Docusate Sodium 1 Tablet PO (10:35)
[2022-07-13] MEDS: Acetaminophen 500 MG Tablet 1000 MG PO ×2 (01:56→08:34)
[2022-07-13 01:58] VITALS: BP 127/59; PULSE 76; RESP 16; TEMP 36.3; TEMP 36.4
[2022-07-13] MEDS: Ibuprofen 600 MG Tablet PO (04:22)
--- NOTE | 2022-07-13 07:17 | DS.PCM_ITS ---
Discharge Summary Date of Admission: 07/11/22 Date of Discharge: 07/13/22 Summary: Patient arrived on 07/11/2022 with SROM. Subsequently delivered vaginally on 07/11/22. Routine recovery. Patient discharged home on 07/13/2022 Meaningful Use Info Meaningful Use Diagnoses (Choose all that apply): None applicable Discharge Plan Admission Admit Date/Time: 07/11/22 08:15 Primary Reason for Your Visit: Labor Attending Provider: Davy Hansen Primary Care Provider: Yvan Yang Instructions Additional Instructions / Restrictions: Regular diet. Weightbearing as tolerated. Okay to shower. No intercourse for 4 to 6 weeks. Call if fevers, chills, chest pain, shortness of breath. Follow- up 4 to 6 weeks Discharge Orders/Prescriptions Prescriptions: No Action acetaminophen 500 MG tablet 500 - 1,000 mg PO Q6H PRN PRN (Reason: Pain/Inflammation) [id number] 1 TABLET tablet 1 tab PO DAILY Referrals / Follow Up: Yvan Yang MD [Primary Care Provider] - Disposition Disposition (needs filled in before D/C Order can be placed): Home, Self Care
--- NOTE | 2022-07-13 07:18 | PN.OBGYN_ITS ---
Subjective Subjective No overnight complaints Objective Data Objective Data Vital Signs: Vital Signs Temp Pulse Resp BP Pulse Ox O2 Del Method 97.5 F L 76 16 127/59 H 98 Room Air 07/13/22 01:58 07/13/22 01:58 07/13/22 01:58 07/13/22 01:58 07/12/22 16:49 07/13/22 01:58 Oxygen Delivery Method Room Air Weight: 182 lb 3.2 oz Body Mass Index (BMI) 32.3 Intake & Output: Intake and Output for Last 24 Hours 07/11/22 07/12/22 07/13/22 23:59 23:59 23:59 Intake Total 2641.67 / 2641.67 Output Total 1400 / 1400 600 / 600 Balance 1241.67 / 1241.67 -600 / -600 Lab / Micro Data Result Diagrams: 07/11/22 08:30 Physical Exam Const alert, oriented x3, no apparent distress, average body habitus, healthy appearing and well nourished HEENT normocephalic and moist oral mucous membranes Eyes PERRL Resp normal respiratory effort, no retractions and no use of accessory muscles GI GI Narrative: Soft, nontender, uterus firm and below umbilicus Extremity normal to inspection, full ROM and no clubbing, cyanosis or edema Neuro moves all extremities and no focal motor deficits Psych mental status grossly normal, affect normal, speech normal and activity/motor b ehavior normal Assessment & Plan (1) Vaginal delivery: PLAN: day 2. Breast-feeding. Okay to discharge home today
[2022-07-13 08:37] VITALS: BP 121/79; PULSE 86; TEMP 36.7
[2022-07-13 08:38] VITALS: BP 121/79; PULSE 86; RESP 18; TEMP 36.7; O2SAT 99
[2022-07-13 08:39] VITALS: PULSE 80; O2SAT 98
== END 2022-07-13 11:10 | disposition home or self-care (01) | DRG 807 ==
PROVIDERS: Admitting Provider Obstetrics & Gynecology; PCP Family Medicine; Visit Provider Obstetrics & Gynecology
DX: O48.0 Post-term pregnancy (principal); Z37.0 Single live birth; O70.0 First degree perineal laceration during delivery; O99.824 Streptococcus B carrier state complicating childbirth; Z3A.40 40 weeks gestation of pregnancy
CPT/HCPCS: 59025; 59050; 76815; 85025; 86850; 86900; 86901; 99218; J7120; G0378

== ENCOUNTER → 2024-08-15 | Outpatient (CLI) | payer BC, SELFPAY ==
[2024-08-15 09:00] LABS: Absolute Lymphocyte Count 1.64 X10^3/uL (0.83-4.51); Absolute Neutrophil Count 3.3 X10^3/uL (2.0-7.7); Basophil# 0.04 X10^3/uL; Basophil% 0.7 % (0-1); Eosinophil# 0.17 X10^3/uL; Hematocrit 41.7 % (37-47); Hemoglobin 13.8 g/dL (12.0-15.0); Lymphocyte # 1.64 X10^3/ul (0.83-4.51); Lymphocyte % 29.3 % (19-41); Mean Corp Hgb Conc 33.1 g/dL (32-36); Mean Corpuscular Hgb 30.5 pg (27.0-32.0); Mean Corpuscular Volume 92.3 fL (81-99); Mean Platelet Vol. 10.8 fl (6.2-12.0); Monocyte# 0.47 X10^3/uL; Monocyte% 8.4 % (0-10); NRBC Flagged by Analyzer 0 % (0-5); Neutrophil # 3.26 X10^3/uL (2.7-7.7); Neutrophil % 58.4 % (47-70); Platelet Count 249 K/mm3 (150-450); RBC Distribution Width CV 12.2 % (11.6-14.6); RBC Distribution Width SD 41.6 fl (35.1-43.9); Red Blood Count 4.52 M/mm3 (4.2-5.4); White Blood Count 5.6 K/mm3 (4.4-11.0)
[2024-08-15 09:27] LABS: Vitamin D,25 Hydroxy 10.2 ng/mL
[2024-08-15 09:29] LABS: Hemoglobin A1c 5.1 % (3.8-5.6)
[2024-08-15 09:32] LABS: ALB/GLOB Ratio 1.1 RATIO (0.9-2.4); AST(SGOT) 27 U/L (15-37); Alanine Aminotransfer ALT/SGPT 65 U/L (13-56); Alkaline Phosphatase 58 U/L (45-117); Anion Gap 4 (5-15); BUN 13 mg/dL (7-18); BUN/Creat Ratio 16.4 RATIO (10-20); Calcium,Total 8.8 mg/dL (8.5-10.1); Chloride 106 mmol/L (98-107); Creatinine, Serum 0.79 mg/dL (0.55-1.02); EST Glomerular Filtration Rate 88 mL/min (>60); Est Glom Filt Rate - Afr Amer 106 mL/min (>60); Estradiol 34.7 pg/mL; Free T3 3.2 pg/mL (2.18-3.98); Globulin 3.5 g/dL (2.2-4.2); Glucose 97 mg/dL (74-106); Potassium 4.1 mmol/L (3.5-5.1); Protein, Total 7.5 g/dL (6.4-8.2); Sodium Level 137 mmol/L (136-145)
[2024-08-17 18:07] LABS: Androstenedione 101 ng/dL (41-262); Insulin Level 8.6 uIU/mL (2.6-24.9); PROLACTIN 8.9 ng/mL (4.8-33.4)
[2024-08-21 16:08] LABS: 17-Hydroxyprogesterone 36 ng/dL (.); PROGESTERONE 0.2 ng/mL (.)
== END | disposition home or self-care (01) ==
LOC: LAB 08:30
PROVIDERS: PCP Family Medicine
DX: E28.8 Other ovarian dysfunction (principal); N92.0 Excessive and frequent menstruation with regular cycle; N94.6 Dysmenorrhea, unspecified; K59.00 Constipation, unspecified; R10.2 Pelvic and perineal pain; R63.5 Abnormal weight gain; Z83.49 Family history of other endocrine, nutritional and metabolic diseases
CPT/HCPCS: 36415; 80053; 82157; 82306; 82533; 82627; 82670; 83036; 83498; 83525; 84144; 84146; 84403; 84439; 84443; 84481; 85025; 82626

== ENCOUNTER → 2024-09-05 | Outpatient (CLI) | payer BC, SELFPAY ==
[2024-09-05 10:04] LABS: Estradiol 104.8 pg/mL
[2024-09-06 08:09] LABS: PROGESTERONE 19.1 ng/mL (.)
== END | disposition home or self-care (01) ==
LOC: LAB 08:01
PROVIDERS: PCP Family Medicine
DX: E28.9 Ovarian dysfunction, unspecified (principal)
CPT/HCPCS: 36415; 82670; 84144

== ENCOUNTER → 2024-10-19 | Outpatient (CLI) | payer BC, SELFPAY ==
[2024-10-19 16:18] LABS: Hemoglobin A1c 5.1 % (3.8-5.6)
[2024-10-19 16:29] LABS: Estradiol 41.1 pg/mL; Free T3 2.8 pg/mL (2.18-3.98); T4 Free Direct 0.96 ng/dL (0.76-1.46)
[2024-10-21 04:07] LABS: PROGESTERONE 0.2 ng/mL (.)
[2024-10-23 15:07] LABS: Thyroglobulin Antibody < 1.0 IU/mL (0.0-0.9); Thyroid Peroxidase AB 9 IU/mL (0-34)
== END | disposition home or self-care (01) ==
LOC: LAB 15:12
PROVIDERS: PCP Family Medicine
DX: E03.9 Hypothyroidism, unspecified (principal); N92.6 Irregular menstruation, unspecified
CPT/HCPCS: 36415; 82670; 83036; 84144; 84439; 84443; 84481; 86376; 86800

== ENCOUNTER 2025-08-01 07:54 | Outpatient (CLI) | payer BC, SELFPAY ==
[2025-08-01 08:45] LABS: Hematocrit 39.1 % (37-47); Hemoglobin 13.4 g/dL (12.0-15.0); Immature Granulocytes Count 0.010 X10^3/uL (0.0-0.0); Mean Corp Hgb Conc 34.3 g/dL (32-36); Mean Corpuscular Volume 91.4 fL (81-99); Mean Platelet Vol. 11.4 fl (6.2-12.0); NRBC Flagged by Analyzer 0 % (0-5); Platelet Count 224 K/mm3 (150-450); RBC Distribution Width CV 11.9 % (11.6-14.6); RBC Distribution Width SD 39.8 fl (35.1-43.9); Red Blood Count 4.28 M/mm3 (4.2-5.4); White Blood Count 5.6 K/mm3 (4.4-11.0)
[2025-08-01 09:52] LABS: AST(SGOT) 19 U/L (<=31); Alanine Aminotransfer ALT/SGPT 25 U/L (<=34); Albumin, Serum 4.5 g/dL (3.5-5.0); Alkaline Phosphatase 57 U/L (35-104); Anion Gap 12 (5-15); BUN 11 mg/dL (4-19); BUN/Creat Ratio 16.1 RATIO (10-20); CORTISOL AM 8.84 ug/dL (6.02-18.40); Calcium,Total 9.1 mg/dL (7.6-11.0); Carbon Dioxide 22.7 mmol/L (21.0-32.0); Chloride 106 mmol/L (98-108); Cholesterol 193 mg/dL (<=200); Follicle Stimulating Hormone 7.4 mIU/mL; Free T3 3.2 pg/mL (2.18-3.98); Globulin 2.6 g/dL (2.2-4.2); Glucose 98 mg/dL (70-99); Low Density Lipoprotein Calc. 130 mg/dL; Potassium 4.1 mmol/L (3.3-5.1); Triglycerides 42 mg/dL; Very Low Density Lipoprotein 8 mg/dL (5-40); Vitamin D,25 Hydroxy 23.3 ng/mL (30-100); cholesterol:hdl ratio screen 3.54
[2025-08-04 11:08] LABS: Anti-Mullerian Hormone,Serum 2.16 ng/mL (.); PROLACTIN 12.3 ng/mL (4.8-33.4)
== END 2025-08-01 23:59 | disposition home or self-care (01) ==
DX: Z00.01 Encounter for general adult medical examination with abnormal findings (principal); Z51.89 Encounter for other specified aftercare
CPT/HCPCS: 36415; 80053; 80061; 82157; 82306; 82533; 82627; 82670; 83001; 83002; 83516; 84146; 84270; 84402; 84439; 84443; 84481; 85025; 82626